=== PATIENT | female | born 1950 | race Caucasian/White ===

== ENCOUNTER → 2016-12-07 | Outpatient (CLI) | payer MEDICARE ==
[~2016-12-07] MED LIST: ASMANEX220 MC1 INH; AUGMENTIN 875-875 MG PO; DOXYCYCLINE100 M3 PO; DOXYCYCLINE100 MG PO; DUONEB 3 MG/3 ML3 M1 INH; LISINOPRIL2.5 MG PO; MEDROL DOSEPAK4 MG PO; MUCINEX ER600 MG PO; NAPROSYN250 MG PO; NEXIUM40 MG PO; PREDNISONE5 MG PO; PROAIR HFA8.5 GM INH; PULMICORT RESP0.5 M1 INH; SYMBICORT1 AE1 INH; Tobradex 0.3-0.15 ML OT; ZAFIRLUKAST20 M2 PO
== END | disposition home or self-care (01) ==
LOC: RAD 09:52
DX: R91.8 Other nonspecific abnormal finding of lung field (principal); J45.909 Unspecified asthma, uncomplicated

== ENCOUNTER 2017-04-12 10:35 | Inpatient (IN) | payer MEDICARE ==
[~2017-04-12] VITALS: Ht 152.4 cm; Wt 77.1 kg
--- NOTE | ~2017-04-12 | PR ---
[place], [place] PROGRESS NOTE NAME: YUE GONZALEZ UNIT #: [id number] ROOM: 516 DOCTOR: BARON ENGLAND MD BIRTHDATE: [birth year] DOS: SUBJECTIVE: The patient underwent a bronchoscopy yesterday. She does not have any complaints today. OBJECTIVE: VITAL SIGNS: Blood pressure is 131/73, pulse of 80, respirations 20, temperature 98. LUNGS: Diminished breath sounds, clear. Cough is persistent. HEART: Regular. ABDOMEN: Obese, soft, nontender. EXTREMITIES: Without any edema. ASSESSMENT AND PLAN: 1. Acute exacerbation of bronchial asthma, on steroids. 2. Acute tracheobronchitis, status post bronchoscopy. Bronch culture is pending. Plan is to discharge her to home tomorrow once the bronch culture is negative. 3. Immunoglobulin levels are on the low side. Discussed with Dr. Fuentes. We will repeat as an outpatient to see whether there is any change. So far the gram stain is coming back negative. Cultures are not available yet. 4. Hypertension. Echocardiogram showed left ventricular hypertrophy. Lisinopril was discontinued because of the continued cough. The patient was placed on low dose of Cardizem. BARON ENGLAND MD CM:PNTRANS 2 6 BARON ENGLAND MD 04/15/1715 interface
--- NOTE | ~2017-04-12 | EKG ---
[place], [place] ELECTROCARDIOGRAM REPORT NAME: YUE GONZALEZ UNIT #: [id number] ROOM: 516 DOCTOR: JEREL TORRES MD,NANCY BIRTHDATE: [birth year] DOS: 04/12/2017 Electrocardiogram done at 9:29 a.m. Normal sinus rhythm noted with heart rate 87 beats per minute. There were no other acute abnormalities noted on the electrocardiogram. NANCY BELTRÁN MD CM:EKGRPT:ELECTROCARDIOGRAM REPORT [id number] NANCY TORRES MD
--- NOTE | ~2017-04-12 | PROC NOTE ---
[place], [place] PROCEDURE NOTE NAME: YUE GONZALEZ UNIT #: [id number] ROOM: 516 DOCTOR: JEREL TORRES MD,NANCY BIRTHDATE: [birth year] DOS: 04/14/2017 PREOPERATIVE DIAGNOSES: Severe nonproductive cough with expiratory wheezing and suspected mucus impaction of major airways with nonproductive cough. POSTOPERATIVE DIAGNOSES: Removal of multiple plugs of the mucus in endobronchial tree bilaterally in almost all of the subsegments. There were no endobronchial obstructive lesions. PROCEDURE DESCRIPTION: Informed consent obtained. She was brought to the OR and placed in supine position. Conscious sedation was administered by the Anesthesia Department. After achieving appropriate sedation, airway introduced into the mouth. Bronchoscope advanced into the airway into laryngeal area. Epiglottis and vocal cords were seen. Bronchoscope was advanced through the vocal cords into the tracheal lumen. The tracheal lumen was identified and noted with moderate amount of thick mucus secretions present in the tracheal lumen suctioned out. Ruth noted sharp. Right upper, right middle, right lower, left upper, lingular lower lobe bronchi all examined and noted very thick plugs of the mucus causing partial impaction of the endobronchial tree bilaterally. All secretions were suctioned out with normal saline wash and sent for culture. Procedure was tolerated without any difficulty. Postoperative findings will be discussed with the patient once the patient recovers the effects of acute sedation. Bronchial washings sent for all the necessary testing. No change in treatment at this time will be necessary because of that. NANCY BELTRÁN MD CM:PROCNOTE:PROCEDURE NOTE [id number] NANCY TORRES MD
--- NOTE | ~2017-04-12 | DS ---
[place], [place] DISCHARGE SUMMARY NAME: YUE GONZALEZ UNIT #: [id number] ROOM: 516 DOCTOR: BARON ENGLAND MD BIRTHDATE: [birth year] DOS: 04/17/2017 HOSPITAL COURSE: The patient was admitted to the hospital on April 12. She comes in with complaints of shortness of breath and cough, had finished outpatient antibiotics and steroids without any improvement. She was admitted to the fifth floor, non-monitored. She was placed on antibiotics and steroids. Dr. Fuentes was consulted. CT of the chest was done to rule out pneumonia. This has come back negative. Routine labs were within normal limits. Immunoglobulin levels were abnormal, and this will need to be repeated as an outpatient. IV steroids, antibiotics were continued. The patient continued to have a cough, so was taken for bronchoscopy. Bronch cultures have come back negative. Blood pressures have been controlled with Cardizem. Lisinopril was discontinued because of the possibility of it causing cough. The patient has continued to improve, but continues to have this very moist sounding cough. Sputum cultures and the bronch cultures all negative, so the plan is to discharge her to home today with continued antibiotics and steroids and follow up as an outpatient and the patient may benefit from allergy testing as an outpatient. DISCHARGE DIAGNOSES: 1. Moderate persistent asthma with exacerbation. 2. Acute tracheobronchitis, status post bronchoscopy with negative cultures. 3. Benign hypertension. 4. Gastroesophageal reflux disease. DISCHARGE MEDICATIONS: Tapering dose of prednisone, Cipro 500 mg twice a day, diltiazem 120 daily, Nexium 40 daily, ProAir 2 puffs twice a day, breathing treatments DuoNebs q.4 hours, zafirlukast 20 b.i.d., guaifenesin 600 b.i.d., Asmanex 2 puffs at bedtime. BARON ENGLAND MD CM:DISCHARG [id number] BARON ENGLAND MD 04/17/17 1654 interface
--- NOTE | ~2017-04-12 | CON ---
[place], [place] REPORT OF CONSULTATION NAME: YUE GONZALEZ UNIT #: [id number] ROOM: 516 DOCTOR: NANCY DIEZ MD BIRTHDATE: [birth year] DOS: 04/13/2017 HISTORY OF PRESENT ILLNESS: This is a 67-year-old white female admitted under care of Dr. Clair Jeronimo on 04/12/2017. The patient reported having symptoms of progressive severe barky kind of cough for the patient, which has been present for the past several weeks to months. The symptoms had not been resolving. She has been treated with corticosteroids, bronchodilators, antibiotics without relief of the symptoms. She denies symptoms of chest pain. Denies symptoms of postnasal drainage. Cough has been noted to significant at times, episodic, nonproductive. She was also noted with symptoms of shortness breath and wheezing along with the current symptom. REVIEW OF SYSTEMS: CONSTITUTIONAL: Fatigue and tiredness noted without symptoms of fever or chills. EYES: Denies any burning, redness, or tenderness. EARS, NOSE, THROAT SYMPTOMS: No sore throat, hoarseness, otalgia, postnasal drainage. CARDIOVASCULAR: Denies anginal pain, edema or pain of the lower extremities. GASTROINTESTINAL: Denies dysphagia, nausea, vomiting, diarrhea, abdominal pain, hematemesis, melena, or hematochezia. SKIN: Denied any lesions or rashes. CENTRAL NERVOUS SYSTEM: No dizziness, headache, diplopia, syncopal episodes. Remaining systems were reviewed with the patient, they were noted all negative. PAST MEDICAL HISTORY: 1. Known with history of uncomplicated severe persistent bronchial asthma. 2. Gastroesophageal reflux. 3. Moderate obesity. PAST SURGICAL HISTORY: 1. Cholecystectomy. 2. Appendectomy. 3. Hysterectomy. 4. ____ 5. 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 6. Therapeutic bronchoscopy. Last bronchoscopy done for this patient in October 2016. SOCIAL HISTORY: The patient is , has 2 children. Denies history of alcohol use or illicit drug use. Denies any history of occupation related pulmonary exposure. FAMILY HISTORY: The patient's father at 65 years of complication of myocardial infarction. Mother lived to be 104 years old and of natural causes. MEDICATIONS: The current administered medication of the patient were noted as use of Cardizem-CD, Protonix, Mucinex, Accolade, Flonase, Solu-Medrol 20 mg IV [place], [place] REPORT OF CONSULTATION NAME: YUE GONZALEZ UNIT #: [id number] ROOM: 516 DOCTOR: NANCY DIEZ MD BIRTHDATE: [birth year] b.i.d., DuoNeb, Zosyn, Zithromax and the patient was previously taking lisinopril, which has been discontinued. ALLERGIES: THE DRUG ALLERGY HISTORY WAS NOTED ALLERGY TO SINGULAIR. PHYSICAL EXAMINATION: GENERAL: A 67-year-old white female, who has been currently noted awake and alert at this time without any acute distress. The patient's height was recorded by the nursing staff on admission with height of 5 feet, weight of 170 pounds, BMI 33.2. VITAL SIGNS: For the patient which has been recorded shows normal temperature, respiratory rate 18-20, heart rate 77-93, blood pressure 160/75-148/89. Pulse oxygen saturation of the patient on room air was 94% saturation. HEENT: Moderate obesity. Head was atraumatic. Eyes nonicterus. NECK: Supple. CARDIOVASCULAR: S1, S2 audible. LUNGS: The patient was noted with moderate decreased breath sounds with expiratory wheezing. There were no crackles. ABDOMEN: Soft with moderate obesity, bowel sounds present. EXTREMITIES: Show no edema, clubbing, cyanosis. CENTRAL NERVOUS SYSTEM: Cranial nerves 2-12 intact. No focal deficit. MUSCULOSKELETAL: No obvious deformities. SKIN: No lesions or rashes. LABORATORY DATA: The patient's CMP for this patient that was done on 04/12/2017 shows glucose 121. BUN and creatinine were normal, remaining CMP normal. CBC of 04/12/2017 for the patient was noted essentially as normal. CT scan of the chest was done yesterday as ordered by Dr. Clair Jeronimo, as well was noted without any acute abnormalities. IMPRESSION: 1. The patient with progressive coughing with acute exacerbation of bronchial asthma, failed to respond to the outpatient treatment with different interventions. 2. History of possibility of allergic rhinitis. 3. Moderate obesity. PLAN OF TREATMENT: Further assessment of cough. The patient has not responded to treatment. She will be benefiting from the therapeutic bronchoscopy planned to be done tomorrow morning. Risks and benefits were discussed. Continue current dose of steroids, bronchodilators, antibiotics. The spectrum of antibiotics should be deescalated soon as the culture results will be available from the sputum or the bronchial washings. Continuation of the bronchodilators and the treatment plan of management. Keep the patient off the lisinopril. The patient should not restarted as antihypertensive medication because of the cough. Alternative medication should be used for the medical management of the hypertension. Assessment and management has been discussed with primary care attending of this patient, Dr. Clair Jeronimo. [place], [place] REPORT OF CONSULTATION NAME: YUE GONZALEZ UNIT #: [id number] ROOM: 516 DOCTOR: NANCY DIEZ MD BIRTHDATE: [birth year] NANCY BELTRÁN MD CM:CONSTR:REPORT OF CONSULTATION 0940 04/13/17 1512 interface
--- NOTE | ~2017-04-12 | PR ---
[place], [place] PROGRESS NOTE NAME: YUE GONZALEZ UNIT #: [id number] ROOM: 516 DOCTOR: JEREL TORRES MD,NANCY BIRTHDATE: [birth year] DOS: 04/16/2017 ADDENDUM The patient was independently seen and examined today with [id number] encounter. Physical exam performed, symptom was confirmed. All the labs were reviewed. The note which was done by the medical delivery driver was approved. The patient has been showing progressive resolution and improvement in respiratory symptoms, reduction of the cough after the bronchoscopy. Denies symptoms of chest pain, ambulating at this time. PHYSICAL EXAMINATION: VITAL SIGNS: The patient was noted afebrile status, other vital signs noted stable. The pulse oxygen saturation of the patient was noted as 95%, auscultation of the chest was noted with questionable wheezing, no crackles. ABDOMEN: Soft, nontender. EXTREMITIES: Shows without any edema. LABORATORY DATA: Culture of the bronchial washing shows normal davian. CBC: WBC count 11.9, otherwise normal. BMP was normal. IMPRESSION: The patient with progressive resolution of the acute tracheobronchitis was noted with acute exacerbation of bronchial asthma after bronchoscopy with removal of the mucous plugs. Plan of management for this patient. Continuation of the antibiotics, corticosteroids, bronchodilators, and other treatment plan as previously. PLAN OF TREATMENT: Discharge the patient home whenever the patient noted medically stable from the pulmonary standpoint. NANCY BELTRÁN MD CM:JOHNATHON [phone] NANCY TORRES MD 04/16/17 1249 interface
--- NOTE | ~2017-04-12 | PR ---
[place], [place] PROGRESS NOTE NAME: YUE GONZALEZ UNIT #: [id number] ROOM: 516 DOCTOR: JEREL TORRES MD,NANCY BIRTHDATE: [birth year] DOS: 04/15/2017 ADDENDUM The patient was independently seen and examined with [id number] encounter. The assessment was completed. History was taken. All the labs were personally reviewed. The assessment and management done for this patient for today's visit was personally made. The note by the medical billing specialist was approved. LABORATORY DATA: The review of the lab for this patient shows Gram stain of the bronchial washing with few epithelial cells, moderate white blood cells, rare gram-positive cocci in pairs. On preliminary routine cultures, the patient noted normal davian. Final cultures are pending. IgE level was noted mildly elevated at 242. The IgA was mildly decreased and mild reduction in IgG was also noted. IMPRESSION: At this time, the patient responding to treatment with significant reduction in the cough was noted with physical examination. There was no wheezing noted. The culture preliminary was noted as no bacterial growth. Mild reduction in IgA and IgG needs to be rechecked for this patient. Once the patient does not have any signs of infection ____ assessment. PLAN OF TREATMENT: The patient could be discharged home as necessary. The patient on tapering dose of prednisone, antibiotics. The cultures will be monitored. The assessment, management and discharge planning was discussed with Dr. Clair Jeronimo as well. NANCY BELTRÁN MD CM:PNTRANS [id number] 1023 NANCY TORRES MD 04/15/17 1021 interface
--- NOTE | ~2017-04-12 | PR ---
[place], [place] PROGRESS NOTE NAME: YUE GONZALEZ UNIT #: [id number] ROOM: 516 DOCTOR: RACHELSARAH VICTORDAVE BIRTHDATE: [birth year] DOS: 04/16/2017 SUBJECTIVE: The patient is awake, alert, oriented, has no complaints. Denies any vomiting, chest pain, shortness of breath, fevers, chills or any other symptoms. She does report that she is still coughing somewhat, but that has significantly improved since yesterday. OBJECTIVE EXAMINATION: VITAL SIGNS: Temperature is 98.7, pulse rate 97, respiratory rate is 20, blood pressure is ____ and bedside pulse oximetry is 95% on room air. GENERAL: The patient is awake, alert, oriented, in no acute distress. CARDIOVASCULAR: Regular rate and rhythm. S1, S2 heard. PULMONARY: Some wheezes scattered throughout with decreased respiratory sounds. No crackles in lower lung kelsey. ABDOMEN: Soft, nontender, nondistended. EXTREMITIES: No erythema. No edema. NEUROLOGIC: Awake, alert, oriented to time, place and person. No gross neurologic abnormalities. Cranial nerves 2-12 are grossly intact. LABORATORY DATA: April 16, white blood count is 11.9, hemoglobin is 12.4, hematocrit is 37.5 and platelet count is 337. Chemistries: Sodium is 140, potassium 3.6, chloride is 106, carbon dioxide is 24, BUN is 17, creatinine is 0.69 and GFR is more than 60, glucose is 127, calcium is 8.4. IMPRESSION: Asthma exacerbation has improved and respiratory status has improved from yesterday. The cultures from the lungs have shown some epithelial cells, moderate white blood cells and rare gram-positive cocci in pairs. Please see Dr. Beltrán's attached note for more details on impression and plan, generally the patient is okay to be discharged at discretion of Dr. Jeronimo, the PCP and continue to follow up with Dr. Beltrán on an outpatient basis. Thank you for this consult. AMCHAPARRO DAVIDSHAUNADO [place], [place] PROGRESS NOTE NAME: YUE GONZALEZ UNIT #: [id number] ROOM: 516 DOCTOR: DAVE VELASCO DO BIRTHDATE: [birth year] NANCY BELTRÁN MD CM:JOHNATHON [phone] DAVE VELASCO DO 04/16/17 1850 interface
--- NOTE | ~2017-04-12 | WRIGHTHP ---
[place], [place] PATIENT HISTORY AND PHYSICAL EXAM NAME: YUE GONZALEZ UNIT #: [id number] ROOM: 516 DOCTOR: BARON ENGLAND MD BIRTHDATE: [birth year] DOS: 04/12/2017 HISTORY OF PRESENT ILLNESS: This patient is 67 years old, comes in with complaints of cough and shortness of breath. The patient was treated with antibiotics as an outpatient last week. She finished the antibiotic, but did not get any better, but continued to have very productive cough and increasing shortness of breath, both exertional as well as rest. She denies having any chest pains or palpitations, does not have any fever or chills, does not have any abdominal pain, nausea, any emesis. PAST MEDICAL HISTORY: Significant for: 1. Moderate persistent asthma. 2. Last hospitalization in August 2016 with acute tracheobronchitis and bronchoscopy performed at that time. 3. Benign hypertension. 4. Gastroesophageal reflux disease. MEDICATIONS: She is on right now are ProAir HFA q.i.d. p.r.n., breathing treatments q.4h., Asmanex 2 puffs at bedtime, Nexium 40 daily, lisinopril 2.5 daily, Accolate 20 b.i.d. and Mucinex 600 b.i.d. She has just finished taking amoxicillin and tapering dose of prednisone. SOCIAL HISTORY: Nonsmoker, does not use any alcohol. Lives at home. PHYSICAL EXAMINATION: GENERAL: The patient is awake and alert and oriented. VITAL SIGNS: Graphic trend shows a pressure 148/80, pulse of 72, respirations 20, afebrile, very moist harsh sounding cough. LUNGS: Rales throughout the lungs kelsey. HEART: Regular. ABDOMEN: Obese, soft, nontender. EXTREMITIES: Without any edema. ASSESSMENT AND PLAN: 1. Acute tracheobronchitis, rule out pneumonia. The patient is ordered a CT of the chest. The patient is placed on IV steroids and antibiotics. 2. Moderate asthma with exacerbation. IV steroids have been added. Dr. Fuentes has been consulted and possibly require a bronchoscopy. Immunoglobulin levels will be ordered and the patient may benefit from allergy testing as an outpatient. 3. Benign hypertension, on lisinopril, which also could cause some of her cough, I will discontinue the medicine and restart low dose antihypertensives at a later date. [place], [place] PATIENT HISTORY AND PHYSICAL EXAM NAME: YUE GONZALEZ UNIT #: [id number] ROOM: [facility] DOCTOR: BARON ENGLAND MD BIRTHDATE: [birth year] BARON ENGLAND MD CM:HISPHYS:PATIENT HISTORY AND PHYSICAL EXAMINATION 0825 1010 BARON ENGLAND MD 04/13/17 1338 interface
--- NOTE | ~2017-04-12 | PR ---
[place], [place] PROGRESS NOTE NAME[id number] UNIT #: [id number] ROOM: 516 DOCTOR: JEREL TORRES MD,NANCY BIRTHDATE: [birth year] DOS: 04/14/2017 SUBJECTIVE: She has been noted the same without any changes where she was noted with severe cough, which has not been resolving at all with current medical management. She was continued on bronchodilators, oxygen supplementation and other plan of therapy. She denies any symptoms of chest pain or hemoptysis. She has been n.p.o. past midnight for bronchoscopy that was planned to be done today in this patient. OBJECTIVE: VITAL SIGNS: For the patient which were recorded showed the temperature recorded as normal. The respiratory rate recorded as 20, heart rate of 92, blood pressure 120/55. Pulse oxygen saturation on room air was 94% saturation. HEENT: Examination shows no acute change. NECK: Supple. CARDIOVASCULAR: S1, S2 audible. LUNGS: The patient was noted without any crackles. Moderate expiratory wheezing was noted with decreased breath sounds bilaterally. ABDOMEN: Soft, nontender. IMPRESSION: The patient with persistent severe cough related to acute exacerbation of bronchial asthma with suspected mucus impaction of major airways as well as history of chronic [id number] obesity. PLAN OF TREATMENT: Continuation of the current therapy for the patient at this time. Proceed with bronchoscopy. Any modification of treatment if necessary after the bronchoscopy would be made accordingly. In the meantime, continue supportive therapy, plan of management care and treatments. NANCY BELTRÁN MD CM:PNTRANS 1016 1102 NANCY TORRES MD 04/14/17 1100 interface
--- NOTE | ~2017-04-12 | PR ---
[place], [place] PROGRESS NOTE NAME: YUE GONZALEZ UNIT #: [id number] ROOM: 516 DOCTOR: BARON ENGLAND MD BIRTHDATE: [birth year] DOS: SUBJECTIVE: The patient is not having any complaints this morning other than her continued cough. Cough is quite wet. She does not have any complaints of shortness of breath. PHYSICAL EXAMINATION: VITAL SIGNS: Blood pressure is 137/96, pulse of 90, respirations 20, temperature 98.7. LUNGS: Diminished breath sounds. No wheezes, rales or rhonchi heard. HEART: Regular. ABDOMEN: Obese, soft. EXTREMITIES: Without any edema. LABORATORY DATA: Bronch cultures have come back showing normal davian. Another set is still pending. White cell count is slightly elevated, possibly steroid effect. Electrolytes were normal. ASSESSMENT AND PLAN: 1. Acute tracheobronchitis with continued cough. So far, cultures have come back negative. 2. Moderate intermittent asthma with mild exacerbation, improving. 3. Benign hypertension. Pressures not very well controlled, increase dose of the Cardizem. BARON ENGLAND MD CM:PNTRANS 0844 112 BARON ENGLAND MD 04/16/17 1121 interface
--- NOTE | ~2017-04-12 | PR ---
[place], [place] PROGRESS NOTE NAME: YUE GONZALEZ UNIT #: [id number] ROOM: 516 DOCTOR: BARON ENGLAND MD BIRTHDATE: [birth year] DOS: SUBJECTIVE: The patient is doing well without any complaints this morning. She still has a cough, but is no longer short of breath. OBJECTIVE: VITAL SIGNS: Graphic trend shows a pressure of 127/63, pulse of 70, respirations 16, temperature 98.0. LUNGS: Diminished breath sounds. HEART: Regular. ABDOMEN: Obese, soft, nontender. EXTREMITIES: Without any edema. LABORATORY DATA: Sputum culture, final is normal davian. ASSESSMENT AND PLAN: 1. Moderate persistent asthma with exacerbation, improved. 2. Acute tracheobronchitis, status post bronchoscopy with negative cultures with continued cough, placed her on steroids and antibiotics and discharge her to home today. Follow up as an outpatient. 3. Hypertension, controlled. BARON ENGLAND MD CM:PNTRANS [id number] 1019 BARON ENGLAND MD 04/17/17 1017 interface
--- NOTE | ~2017-04-12 | PR ---
[place], [place] PROGRESS NOTE NAME: YUE GONZALEZ UNIT #: [id number] ROOM: 516 DOCTOR: DAVE VELASCO DO BIRTHDATE: [birth year] DOS: 04/15/2017 SUBJECTIVE: The patient had a bronchoscopy done yesterday. She states she is feeling significantly better today, but she continues to have some coughing spells, which are not as severe as it had been. She denies any chest pain, any fevers or ____. OBJECTIVE: VITAL SIGNS: Temperature is 97.7, pulse is 80, respiratory rate is 20, blood pressure is 156/81, and pulse ox is 95% on room air. Bronchial cultures and Gram stains are still pending. HEENT: No new changes. NECK: Supple and no masses. CARDIOVASCULAR: S1, S2 are audible. No murmurs. LUNGS: Some minimal wheezing can be heard bilaterally, but no significant crackles could be heard at this time. Breath sounds are somewhat decreased bilaterally. ABDOMEN: Soft, nontender. EXTREMITIES: Show no edema or erythema. IMPRESSION: The patient's cough is significantly improved after the bronchoscopy. Her exacerbation of bronchial asthma with the mucus plugging improved majorly. Actually, ____ go with the treatment. The patient can be discharged at this time at the discretion of Dr. Jeronimo, but from a pulmonary perspective, she is significantly improved. Please see Dr. Beltrán's attached note for more details. DAVE VELASCO, DO NANCY BELTRÁN MD CM:PNABRAHAM [id number] DAVE VELASCO DO 04/16/17 0847 interface
[2017-04-12 10:45] VITALS: BP 160/75
--- NOTE | 2017-04-12 10:45 | NUR ---
A 67, admitted to 5E, under the services of BARON Eduardo MD with a diagnosis of PNEUMONIA. Chief complaint is SOB WITH WHEEZING AND HARSH NONPRODUCTIVE COUGH. Patient arrived via WHEELCHAIR [place]. Monitor applied. Initial assessment completed. Vital signs taken and recorded. BARON EDUARDO MD notified of admission to the unit. Orders received. See assessment for past medical history, medications and allergies. Patient and/or family oriented to unit. [address] visitation policy reviewed. Clothing/patient valuable form completed. KELSIE MARTINEZ
[2017-04-12] MEDS ORDERED: ASMANEX HFA13 G1 INH (11:11)
[2017-04-12] MEDS ORDERED: AMOXICILLIN500 M2 PO (11:12)
[2017-04-12] MEDS ORDERED: PREDNISONE20 M1 PO (11:13)
--- NOTE | 2017-04-12 11:14 | NUR ---
MEDS VERIFIED WITH [facility]
[2017-04-12 12:00] VITALS: BP 160/75
--- NOTE | 2017-04-12 12:00 | NUR ---
IV started left forearm with #22 angiocath after 1 attempts. The IV site was prepped with Chloraprep. Heparin lock attached Sterile dressing applied. Patient tolerated precedure well. Procedure performed according to [facility] policy & procedure. KELSIE MARTINEZ
--- NOTE | 2017-04-12 12:32 | NUR ---
CALLED CONSULT TO DR BELTRÁN
[2017-04-12 14:07] LABS: BASO % 0.4 % (0.0-1.0); EOS % 0.1 % (1.0-4.0); HEMOGLOBIN 13.2 g/dl (12.0-16.0); LYMPH # 1.2 10*3/uL (1.3-4.4); LYMPH % 14.7 % (27.0-41.0); MEAN CELL VOLUME 87.3 fl (81.0-99.0); MEAN CORPUSCULAR HGB 28.8 pg (27.0-31.0); MEAN PLATELET VOLUME 9.1 fl (9.6-12.3); MONO # 0.2 10*3/uL (0.1-1.0); MONO % 2.2 % (3.0-9.0); NEUT # 6.6 10*3/uL (2.3-7.9); NEUT % 81.9 % (47.0-73.0); PLATELET COUNT AUTOMATED 324 10*3/uL (130-400); RED BLOOD COUNT 4.58 10*6/uL (4.10-5.10); RED CELL DISTRI WIDTH 13.1 % (0-14.5)
[2017-04-12 14:25] LABS: ALBUMIN 3.7 gm/dl (3.1-4.5); ALKALINE PHOSPHATASE 85 U/L (45-117); BUN 9 mg/dl (7-24); CHLORIDE 107 mmol/L (98-107); CREATININE 0.58 mg/dL (0.55-1.02); POTASSIUM 3.8 mmol/L (3.5-5.1); SGOT/AST 20 IU/L (3-35); SGPT/ALT 35 U/L (12-78); SODIUM 143 mmol/L (136-145); TOTAL PROTEIN 7.1 gm/dL (6.4-8.2)
[2017-04-12 16:00] VITALS: BP 129/68
--- NOTE | 2017-04-12 19:30 | NUR ---
ASSUMED CARE OF PT AT THIS TIME, RESPS EASY AND NONLABORED CALL LIGHT WITH IN REACH
[2017-04-12 20:00] VITALS: BP 110/60
--- NOTE | 2017-04-12 23:12 | NUR ---
RESTING IN BED WITH EYES CLOSED RESPS EASY AND NONLABORED WITH NO S/S OF DISTRESS CALL LIGHT WITH IN REACH
[2017-04-13] VITALS: BP 148/89
[2017-04-13 06:13] LABS: TOTAL PROTEIN, SERUM 6.2 g/dL (6.0-8.5)
--- NOTE | 2017-04-13 06:47 | NUR ---
INSTRUCTED PT WHEN HAVING PRODUCTIVE COUGH TO SPIT IN BOTTLE FOR SPUTUM SAMPLE, UNDERSTANDING VOICED
[2017-04-13 08:00] VITALS: BP 131/76
--- NOTE | 2017-04-13 08:30 | NUR ---
[employer] in to talk to patient. Patient states lives at HOME ALONE with HAS LARGE FAMILY THAT SEES HER FREQ. There are 30-40 steps in the home. Physician: DR ENGLAND Pharmacy: [facility] Home health services: NONE Patient's level of ADLs: INDEPENDENT Patient has working utilities: YES DME: [facility] Follow-up physician's appointment after d/c: PREFERS TO MAKE HER OWN APPT Does patient want to access PORTAL?: Discharge plan HOME. MILTON ROSENBERG
[2017-04-13 12:00] VITALS: BP 130/64
[2017-04-13 16:00] VITALS: BP 112/60
[2017-04-13 17:05] LABS: A/G RATIO 1.2 (0.7-1.7); ALBUMIN 3.4 g/dL (2.9-4.4); ALPHA-1-GLOBULIN 0.3 g/dL (0.0-0.4); ALPHA-2-GLOBULIN 0.8 g/dL (0.4-1.0); GAMMA GLOBULIN 0.7 g/dL (0.4-1.8); GLOBULIN, TOTAL 2.8 g/dL (2.2-3.9); M-SPIKE Not Observed g/dL (Not Observed)
--- NOTE | 2017-04-13 19:43 | NUR ---
PATIENT AWAKE IN BED AT THIS TIME, ALERT AND ORIENTED X3. PATIENT C/O NON-PRODUCTIVE HACKING COUGH. PATIENT ENCOURAGED TO COUGH & DEEP BREATHE. EDUCATED ABOUT NEEDING SPUTUM SPECIMIN, BUT PATIENT STATES SHE CANNOT BRING ANYTHING UP. DISCUSSED PLANS FOR BRONCH IN AM WITH AND NPO STATUS AFTER MIDNIGHT. PATIENT VERBALIZED UNDERSTANDING. WILL CONTINUE TO MONITOR. CALL LIGHT LEFT IN REACH.
[2017-04-13 20:00] VITALS: BP 131/69
--- NOTE | 2017-04-13 20:24 | NUR ---
SPOKE TO AT THIS TIME REGARDING PATIENT'S REQUEST FOR PAIN MEDICATION FOR HEADACHE/GENERALIZED NECK/BODY PAIN FROM COUGHING. PT ALSO REQUESTING SOMETHING TO HELP HER SLEEP. NEW ORDERS RECEIVED FOR PO TYLENOL 650MG Q6H PRN AND AMBIEN 5MG QHS PRN.
--- NOTE | 2017-04-13 21:42 | NUR ---
PATIENT MEDICATED WITH PO TYLENOL AND PO AMBIEN PER PRN ORDER FOR C/O GENERALIZED BODY PAIN/HEADACHE FROM COUGHING AND SLEEPLESSNESS. WILL MONITOR EFFECTIVENESS. CALL LIGHT LEFT IN REACH.
--- NOTE | 2017-04-13 22:26 | NUR ---
PATIENT STATES EARLIER MEDICATIONS WERE EFFECTIVE. PATIENT IS STILL AWAKE BECAUSE OF HER COUGHING SPELLS, BUT STATES SHE IS STARTING TO FEEL TIRED. REMINDED PATIENT SHE IS TO HAVE NOTHING TO EAT/DRINK AFTER MIDNIGHT FOR BRONCH IN AM. WILL MONITOR. CALL LIGHT LEFT IN REACH.
[2017-04-14] VITALS (7 sets, daily range): BP systolic 103–152; BP diastolic 46–77
--- NOTE | 2017-04-14 00:16 | NUR ---
PATIENT ASLEEP IN BED AT THIS TIME. RESPIRATIONS EASY, NO S/S OF DISTRESS NOTED. ON ROOM AIR. CALL LIGHT LEFT INR EACH.
--- NOTE | 2017-04-14 03:53 | NUR ---
PATIENT ASLEEP IN BED AT THIS TIME. RESPIRATIONS EASY. NO S/S OF DISTRESS NOTED. WILL MONITOR. CALL LIGHT IN REACH.
[2017-04-14 07:05] LABS: IMMUNOGLOBULIN IgE 002170 242 IU/mL (0-100)
--- NOTE | 2017-04-14 07:51 | NUR ---
PT TAKEN OFF FLOOR TO BRONCH AT THIS TIME.
[2017-04-15] VITALS: BP 131/73
[2017-04-15 00:03] LABS: IGG SUBCLASS 1 326 mg/dL (248-810); IGG SUBCLASS 2 230 mg/dL (130-555); IGG SUBCLASS 3 62 mg/dL (15-102); IGG SUBCLASS 4 75 mg/dL (2-96)
--- NOTE | 2017-04-15 01:01 | NUR ---
24 HR chart check completed.
[2017-04-15 08:00] VITALS: BP 156/81
[2017-04-15 12:00] VITALS: BP 127/58
--- NOTE | 2017-04-15 13:38 | NUR ---
Patient awake, alert, & ambulatory. Up walking in hallway. harsh cough still present on assessment. Productive at times. Lungs diminished w/ some rhonchi on the right side. No needs voiced at this time.. Call light in reach.
[2017-04-15 16:00] VITALS: BP 135/73
[2017-04-15 16:09] LABS: ACID FAST SMEAR Negative (.); ACID FAST SPEC PROCESSING Concentration (.)
[2017-04-15 20:00] VITALS: BP 143/58
--- NOTE | 2017-04-15 21:15 | NUR ---
Medicated with Ambien po prn for help with sleep. Will monitor effectiveness. Call light within reach.
--- NOTE | 2017-04-15 22:20 | NUR ---
Patient resting quietly in bed with eyes closed. Paul effective. Will continue to monitor. Call light within reach.
[2017-04-16] VITALS: BP 141/77
--- NOTE | 2017-04-16 00:24 | NUR ---
24 HR chart check completed.
[2017-04-16 06:34] LABS: BASO % 0.2 % (0.0-1.0); HEMATOCRIT 37.5 % (37.0-47.0); HEMOGLOBIN 12.4 g/dl (12.0-16.0); LYMPH # 1.2 10*3/uL (1.3-4.4); LYMPH % 10.3 % (27.0-41.0); MEAN CELL VOLUME 88.4 fl (81.0-99.0); MEAN CORPUSCULAR HGB 29.2 pg (27.0-31.0); MEAN CORPUSCULAR HGB CONC 33.1 g/dl (33.0-37.0); MEAN PLATELET VOLUME 9.1 fl (9.6-12.3); MONO # 0.5 10*3/uL (0.1-1.0); MONO % 3.8 % (3.0-9.0); NEUT # 10.1 10*3/uL (2.3-7.9); NEUT % 84.6 % (47.0-73.0); PLATELET COUNT AUTOMATED 336 10*3/uL (130-400); RED BLOOD COUNT 4.24 10*6/uL (4.10-5.10); RED CELL DISTRI WIDTH 13.2 % (0-14.5); WHITE BLOOD COUNT 11.9 10*3/uL (4.8-10.8)
[2017-04-16 07:00] LABS: BUN 17 mg/dl (7-24); CHLORIDE 106 mmol/L (98-107); CREATININE 0.69 mg/dL (0.55-1.02); POTASSIUM 3.6 mmol/L (3.5-5.1); SODIUM 140 mmol/L (136-145)
[2017-04-16 08:00] VITALS: BP 137/96
--- NOTE | 2017-04-16 11:16 | NUR ---
PATIENT IV CAUSING PAIN. REMOVED AND REPLACED VIA PT REQUEST.
[2017-04-16 12:00] VITALS: BP 153/67
--- NOTE | 2017-04-16 13:52 | NUR ---
dr. coleman called and notified of micro results. dr. coleman said she will more then likely dc the patient tomorrow morning. no other concerns at this time.
[2017-04-16 16:00] VITALS: BP 106/61
--- NOTE | 2017-04-16 19:37 | NUR ---
24 HR chart check completed.
[2017-04-16 20:00] VITALS: BP 137/69
--- NOTE | 2017-04-16 21:23 | NUR ---
C/O INSOMNIA. MEDICATED WITH PRN AMBIEN ORDERED AND PER PATIENT REQUEST.
--- NOTE | 2017-04-16 22:12 | NUR ---
PATIENT ASLEEP. GABINO ROSAS.
[2017-04-17] VITALS: BP 127/63
--- NOTE | 2017-04-17 04:39 | NUR ---
PT SLEEPING AT THIS TIME. NO S/S OF DISTRESS. RESPIRATIONS EASY AND UNLABORED. HR 80 PER CM AT THIS TIME. NOT AWAKENED PER [facility] [place]. ALL SAFETY MEASURES IN PLACE. CALL LIGHT IN REACH.
--- NOTE | 2017-04-17 06:57 | NUR ---
PT MORNING MEDICATION TAKEN WITH EASE. IV SITE PATENT, DRESSING DRY AND IN TACT. PT PLEASANT AND COOPERATIVE WITH NO COMPLAINTS AT THIS TIME. NO S/S OF DISTRESS. CALL LIGHT IN REACH.
[2017-04-17] MEDS ORDERED: DILTIAZEM 24HR120 MG PO (07:59)
[2017-04-17] MEDS ORDERED: CIPRO500 MG PO (07:59)
[2017-04-17] MEDS ORDERED: PREDNISONE5 MG PO (07:59)
[2017-04-17 08:00] VITALS: BP 136/83
--- NOTE | 2017-04-17 08:54 | NUR ---
PATIENT BEING DISCHARGED TO HOME. ALL PAPERS SIGNED. HEART MON REMOVED. IV REMOVED. ALL BELONGINGS TOGETHER. EDUCATION GIVEN FOR NEW PRESCRIPTIONS. NO QUESTIONS OR CONCERNS AT THIS TIME. PT WAITING FOR RIDE.
--- NOTE | 2017-04-17 08:56 | NUR ---
Discharge instructions reviewed with patient/family. Patient receptive and verbalizes understanding. Follow-up care arranged. Written instructions given to patient/family. SMITA HANNA
== END 2017-04-17 08:56 | disposition home or self-care (01) | DRG 202 ==
LOC: 5E 10:35
PROVIDERS: Internal Medicine Critical Care Medicine; ADMIT Internal Medicine
DX: J20.9 Acute bronchitis, unspecified (principal); J45.51 Severe persistent asthma with (acute) exacerbation; T17.890A Other foreign object in other parts of respiratory tract causing asphyxiation, initial encounter; I11.9 Hypertensive heart disease without heart failure; E66.8 Other obesity; K21.9 Gastro-esophageal reflux disease without esophagitis; Z68.33 Body mass index [BMI] 33.0-33.9, adult; Z90.49 Acquired absence of other specified parts of digestive tract; Z90.710 Acquired absence of both cervix and uterus; X58.XXXA Exposure to other specified factors, initial encounter; Y93.89 Activity, other specified; Y92.89 Other specified places as the place of occurrence of the external cause; Y99.8 Other external cause status

== ENCOUNTER → 2017-05-09 | Outpatient (CLI) | payer MEDICARE ==
[~2017-05-09] MED LIST changes: +AMOXICILLIN500 M2 PO; +ASMANEX HFA13 G1 INH; +CIPRO500 MG PO; +DILTIAZEM 24HR120 MG PO; +PREDNISONE20 M1 PO
[2017-05-11 08:12] LABS: COMPLEMENT C4 001834 28 mg/dL (14-44)
[2017-05-11 16:10] LABS: RUBEOLA AB IGG 096560 >300.0 AU/mL (Immune >29.9)
== END | disposition home or self-care (01) ==
LOC: LAB 06:19
PROVIDERS: Specialist
DX: J32.9 Chronic sinusitis, unspecified (principal); B99.8 Other infectious disease

== ENCOUNTER → 2017-06-23 | Outpatient (CLI) | payer MEDICARE | END | disposition home or self-care (01) | LOC: LAB 08:36 | PROVIDERS: Specialist | DX: J32.9 Chronic sinusitis, unspecified (principal); M87.019 Idiopathic aseptic necrosis of unspecified shoulder; D83.8 Other common variable immunodeficiencies ==

== ENCOUNTER 2017-07-24 09:53 | Inpatient (IN) | payer MEDICARE ==
[~2017-07-24] VITALS: Ht 152.4 cm; Wt 80.3 kg
--- NOTE | ~2017-07-24 | PR ---
[place], [place] PROGRESS NOTE NAME: YUE GONZALEZ UNIT #: [id number] ROOM: 524 DOCTOR: JEREL TORRES MD,NANCY BIRTHDATE: [birth year] DOS: 07/26/2017 SUBJECTIVE: The patient has been noted without any ongoing acute or new specific complaints at this time. Coughing has been still noted with partial reduction. There were symptoms of wheezing, shortness of breath occurs with exertion. The patient was noted with a pain in the chest related to the current cough. OBJECTIVE: VITAL SIGNS: For the patient which were recorded show normal temperature, respiratory rate 18, heart rate 74, blood pressure 142/80. The pulse oxygen saturation noted on room air 94% saturation. HEENT: Showed no acute change. NECK: Supple. CARDIOVASCULAR: S1, S2 audible. LUNGS: The patient noted without any wheezing or crackles at present time. ABDOMEN: Soft, nontender. EXTREMITIES: Without any acute edema. IMPRESSION: Persistent severe cough with acute exacerbation of bronchial asthma. There has not been much wheezing noted today. The cough remains persistent. PLAN OF TREATMENT: Fiberoptic bronchoscopy in the morning to help clear mucus impaction of major airways. Other treatment at this time remains unchanged. Supportive care, other therapy, plan of management and treatments. NANCY BELTRÁN MD CM:PNTRANS [id number] NANCY TORRES MD 07/27/17 0029 interface
--- NOTE | ~2017-07-24 | PR ---
[place], [place] PROGRESS NOTE NAME: YUE GONZALEZ UNIT #: [id number] ROOM: 524 DOCTOR: JEREL TORRES MD,NANCY BIRTHDATE: [birth year] DOS: 07/25/2017 SUBJECTIVE: She has been noted severe episode of cough, which remained nonproductive. She was started on cough medication as well as other medical management changes were made yesterday. She was still getting intravenous Solu-Medrol the patient same dose. The patient has a mg Solu-Medrol t.i.d. OBJECTIVE: VITAL SIGNS: For the patient, which has been recorded for the patient shows a normal temperature, respirations 18, heart rate 76, blood pressure 128/99. The pulse oxygen saturation on 2 liters 94% saturation. HEENT: Mild obesity. NECK: Supple. CARDIOVASCULAR: S1, S2 is audible. LUNGS: Moderate decreased breath sounds, scattered wheezing, no crackles. ABDOMEN: Soft, nontender. EXTREMITIES: Without any acute edema. IMPRESSION: Acute tracheobronchitis with exacerbation of chronic obstructive pulmonary disease, severe nonproductive cough for this patient at the present time was also noted. PLAN OF TREATMENT: Continue Solu-Medrol, bronchodilator, current antibiotics for the patient as well. Empirical management of pertussis infection. The patient was present with the use of the oral Zithromax. Continuation of the bronchodilators, oxygen supplementation and other treatment plan as in progress. Usual care. Supportive therapy, plan of care. NANCY BELTRÁN MD CM:PNTRANS [phone] NANCY TORRES MD 07/25/17 185 interface
--- NOTE | ~2017-07-24 | PR ---
[place], [place] PROGRESS NOTE NAME: YUE GONZALEZ UNIT #: [id number] ROOM: 524 DOCTOR: BARON ENGLAND MD BIRTHDATE: [birth year] DOS: SUBJECTIVE: The patient continues to have the cough. Denies having any chest pains or palpitations. Currently getting echocardiogram. OBJECTIVE: VITAL SIGNS: Graphic shows blood pressure 120/52, pulse of 92, respirations 20, temperature 98.1. LUNGS: Diminished breath sounds, fairly clear this morning. HEART: Regular. ABDOMEN: Obese, soft. EXTREMITIES: Without any edema. ASSESSMENT AND PLAN: 1. Gzqkhwli-[id number] intermittent asthma with acute exacerbation, on IV steroids with some improvement in the bronchospasm. 2. Acute tracheobronchitis with continued harsh, unrelenting cough. The patient is on multiple cough medications. Discussed with nursing staff. Dr. Fuentes is following. The patient is on multiple antibiotics also. Cultures so far are negative. BARON ENGLAND MD CM:PNTRANS [id number] BARON ENGLAND MD 07/26/17 1328 interface
--- NOTE | ~2017-07-24 | CON ---
[place], [place] REPORT OF CONSULTATION NAME: YUE GONZALEZ UNIT #: [id number] ROOM: 524 DOCTOR: NANCY DIEZ MD BIRTHDATE: [birth year] DOS: 07/24/2017 PULMONARY CONSULTATION, EVALUATION AND MANAGEMENT CONSULTATION REQUESTED BY: Dr. Clair Jeronimo completed on 07/24/2017. REASON FOR CONSULTATION: To assess the patient for the pneumonia and current acute respiratory symptoms. HISTORY OF PRESENT ILLNESS: This is a 67-year-old white female known to me with past history of uncomplicated severe persistent bronchial asthma and severe allergic rhinitis. The patient has been seen by the service and repair supervisor from [place], [place]. She has been noted with allergies to multiple environmental allergens, still awaiting for the approval and authorization to administer the immunotherapy. She presented to the hospital Emergency as the patient has been noted progressive worsening of the respiratory symptoms of cough for the past couple of weeks. The symptoms have been noted gradually progressive and remains severe nonproductive and episodic. She was also noted with increased shortness of breath and also complaining of generalized weakness and fatigue. The wheezing with the patient described intermittently as well with the chest pain related to the current cough, lower portion of the chest. She denies symptoms of hemoptysis. She has been assessed in the Emergency Room and currently being hospitalized for that. During the assessment, she has noted excessive cough, which appeared to be somewhat croup nature sound for this patient on the coughing and noted nonproductive, could last for several minutes. REVIEW OF SYSTEMS: CONSTITUTIONAL SYMPTOMS: Fatigue and tiredness reported without any symptoms of fever or chills. EYES: Denies any burning, redness, or tenderness. EAR, NOSE, THROAT: Denies sore throat, hoarseness, otalgia, postnasal drainage or epistaxis. CARDIOVASCULAR: Denies angina pain, edema or pain of the lower extremities. GASTROINTESTINAL SYMPTOMS: No dysphagia, nausea, vomiting, diarrhea, abdominal pain, hematemesis, melena or hematochezia. SKIN: Denies lesions or rashes. MUSCULOSKELETAL: Denies any acute joint pain. CENTRAL NERVOUS SYSTEM: No dizziness, headache, diplopia or syncopal episode. Remaining systems were reviewed, they were noted all negative. PAST MEDICAL HISTORY: 1. Was known with previous hospitalization of the patient in this hospital in 04/2017, at that time, she was treated for acute exacerbation of bronchial asthma and acute bronchitis, also required therapeutic bronchoscopy at that time. 2. Past history of uncomplicated severe persistent bronchial asthma. 3. Allergic rhinitis. 4. Moderate obesity. 5. Gastroesophageal reflux. [place], [place] REPORT OF CONSULTATION NAME: YUE GONZALEZ UNIT #: [id number] ROOM: 524 DOCTOR: JEREL TORRES MD,NANCY BIRTHDATE: [birth year] PAST SURGICAL HISTORY: 1. History of cholecystectomy. 2. History of appendectomy. 3. Hysterectomy. 4. Therapeutic bronchoscopy. The last one done in April 2017. 5. 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 6. History of T and A. SOCIAL HISTORY: The patient is , nonsmoker lifetime. Lives at home. She has 2 children. Denies history of alcohol use or any illicit drug use. There was no occupational-related pulmonary exposure history reported. FAMILY HISTORY: The patient's father at the age of 65 due to complication of myocardial infarction. Mother at the age of 104 years old from an old age. CURRENT ADMINISTERED MEDICATION: The patient was noted as use of IV Solu-Medrol 40 mg q.8h., Mucinex 600 mg p.o. b.i.d., Pulmicort Respules 0.5 mg b.i.d., DuoNeb q.4h., IV Rocephin and Levaquin. DRUG ALLERGIES: NOTED ALLERGY TO THE SINGULAIR FOR CAUSING HIVES. PHYSICAL EXAMINATION: GENERAL: This is a 67-year-old female currently noted to be awake and alert without any acute distress at this time. Height was noted for the patient 5 feet, weight of 177 pounds, BMI 34. VITAL SIGNS: Normal temperature, respiratory rate 18, heart rate 101, blood pressure 136/71. Pulse oxygen saturation on 2 liters nasal cannula 94%, on room air it was 94% saturation. HEENT: Mild obesity. Head is atraumatic. Eyes nonicterus. NECK: Supple. Oral mucosa moist. CARDIOVASCULAR: S1, S2 is audible. LUNGS: Noted with moderate decreased breath sounds, scattered expiratory wheezing without any crackles. ABDOMEN: Soft, nontender. EXTREMITIES: The patient was noted without any acute edema, clubbing or cyanosis. CENTRAL NERVOUS SYSTEM: Cranial nerves 2-12 intact. MUSCULOSKELETAL: Without any deformities. SKIN: Visible skin. No lesions or rashes. LABORATORY DATA: Labs on this patient. CBC today: WBC count 11.6, hemoglobin and hematocrit normal. The lactic acid 2.6, that was mildly elevated today. Influenza A and B, nasal washing antigen negative. The BMP of the patient this morning, normal BUN and creatinine and potassium 3.3. Followup lactic acid 1.4. One view chest x-ray with questionable left lower lobe area of atelectasis of the patient and/or small infiltration cannot be excluded with just 1-view x-ray. IMPRESSION: [place], [place] REPORT OF CONSULTATION NAME: YUE GONZALEZ UNIT #: [id number] ROOM: 524 DOCTOR: NANCY DIEZ MD BIRTHDATE: [birth year] 1. The patient who has been currently admitted to the hospital noted with severe cough, which is noted nonproductive for this patient with acute exacerbation of bronchial asthma. 2. Possibility of atelectasis of left lower lobe for the patient has been considered. Less likely to be acute pneumonia. 3. Rule out the viral etiology of the patient's current cough as well which was leading to current exacerbation of bronchial asthma including for respiratory syncytial virus for this patient as well as a pertussis infection. 4. History of environmental allergies for the patient as well managed by the service and repair supervisor. PLAN OF MANAGEMENT: Order the respiratory viral panel for this patient, nasopharyngeal wash. IgM antibody of pertussis need to be ordered as well but they restricted not to be ordered for the patient per hospital policy at this time, prior authorization will be needed. Continue use of Solu-Medrol for the patient as well. Order PA lateral chest x-ray of the patient today to assess the presence of any pneumonia versus atelectasis. Other supportive therapy, plan of management as well. Symptom management of cough will be done for the patient with using the Robitussin AC because of severe symptomatic cough. Mucinex will be continued the same dose. All other supportive plan of therapy as well will be continued. Usual care. Supportive plan of management as well. Additional treatment changes will be made based on the progression of the illness. The Robitussin will be given for this patient, 5 mL q.6h., because of severe cough. Continuation of bronchodilators. Ordered the sputum for Gram stain and culture of the patient, able to expectorate any sputum as well. Discontinuation of the Levaquin and continue Zithromax orally 500 mg daily to treat if there is any evidence of pertussis. Usual care. Thanks for allowing me to participate in the care of this patient. NANCY BELTRÁN MD CM:CONSTR:REPORT OF CONSULTATION 1542 07/25/17 0258 interface
--- NOTE | ~2017-07-24 | PR ---
[place], [place] PROGRESS NOTE NAME: YUE GONZALEZ UNIT #: [id number] ROOM: 524 DOCTOR: JEREL TORRES MD,NANCY BIRTHDATE: [birth year] DOS: 07/28/2017 SUBJECTIVE: The patient is noted comfortable at this time, resting. Coughing has been noted decreased after bronchoscopy, not completely resolved. Denies symptoms of chest pain. Wheezing has been noted resolved. There were no symptoms of acute shortness of breath. OBJECTIVE: VITAL SIGNS: For the patient which has been recorded shows normal temperature, respiratory rate 18, heart rate of 79, blood pressure 134/69. Pulse oxygen saturation on room air 95% saturation. HEENT: No acute change. NECK: Supple. CARDIOVASCULAR: S1, S2 audible. LUNGS: Noted without any wheezing or crackles. ABDOMEN: Soft, nontender. EXTREMITIES: No edema. LABORATORY DATA: Culture of the bronchial washing was noted as light growth of yeast. IMPRESSION: Resolving acute exacerbation of bronchial asthma with current medical management. Bronchoscopy removal of significant amount of large mucus plugs. PLAN OF MANAGEMENT: Continue the current therapy at this time with the steroids, bronchodilators, oxygen supplementation. Possible discharge home tomorrow morning after review of the final culture results that will be needed for this patient because of the long-term symptoms, which have been present with the cough still noted. NANCY BELTRÁN MD CM:PNTRANS [phone] NANCY TORRES MD 07/29/17 0117 interface
--- NOTE | ~2017-07-24 | EKG ---
[place], [place] ELECTROCARDIOGRAM REPORT NAME: YUE GONZALEZ UNIT #: [id number] ROOM: 524 DOCTOR: JEREL TORRES MD,NANCY BIRTHDATE: [birth year] DOS: 07/26/2017 TIME: 09:32. The electrocardiogram of the patient shows normal sinus rhythm. Heart rate 97 beats per minute. Nonspecific ST-T changes was also noted. Early transition of the R waves were noted in V2. There was no findings of intraventricular conduction delay. NANCY BELTRÁN MD CM:EKGRPT:ELECTROCARDIOGRAM REPORT [id number] NANCY TORRES MD
--- NOTE | ~2017-07-24 | PROC NOTE ---
[place], [place] PROCEDURE NOTE NAME: YUE GONZALEZ UNIT #: [id number] ROOM: 524 DOCTOR: JEREL TORRES MD,NANCY BIRTHDATE: [birth year] DOS: 07/27/2017 BRONCHOSCOPY NOTE PREOPERATIVE DIAGNOSES: The patient with severe coughing, which has been noted episodic, nonresolving and nonproductive with maximum medical therapy. POSTOPERATIVE DIAGNOSES: The patient has evidence of very severe impaction of the mucus with mucus plug removed from the endobronchial tree bilaterally with finding of acute tracheobronchitis as well. PROCEDURE DESCRIPTION: Informed consent obtained for the patient. She was brought to the OR and placed in supine position. Conscious sedation administered by the Anesthesia Department. After achieving proper sedation, airway introduced into the mouth. Bronchoscope advanced to the airway into laryngeal area. Epiglottis and vocal cords seen. Bronchoscope advanced through the vocal cords into the tracheal lumen. The tracheal lumen of the patient was identified and noted with moderate amount of mucoid secretion that was suctioned out to the ruth level. Ruth was noted sharp. Right and left endobronchial tree for this patient was suspected with large plugs of mucus present impacting with partial occlusion of the endobronchial tree bilaterally. The mucous impaction was noted in almost all of the subsegments. The procedure was well tolerated by the patient without any difficulty. Postoperative diagnosis will be discussed with the patient once the patient recovers from the effects of acute sedation. NANCY BELTRÁN MD CM:PROCNOTE:PROCEDURE NOTE [id number] NANCY TORRES MD
--- NOTE | ~2017-07-24 | WRIGHTHP ---
[place], [place] PATIENT HISTORY AND PHYSICAL EXAM NAME: YUE GONZALEZ UNIT #: [id number] ROOM: 524 DOCTOR: BARON ENGLAND MD BIRTHDATE: [birth year] DOS: 07/24/2017 HISTORY OF PRESENT ILLNESS: The patient is 67 years old, very well known to us. The patient did call the office a week ago, was prescribed antibiotic for a cough. The patient states it did not get any better, so she decided to come into the Emergency Room. She denies having any chest pains, palpitations, does not have any fever or chills, does not have any abdominal pain, nausea, emesis. Cough is and unrelenting but it does not end with whoop. Mostly it is dry and she is unable to cough up any mucus. Occasionally she brings small amounts of sputum. PAST MEDICAL HISTORY: Significant for: 1. Moderate persistent asthma with multiple hospitalizations for exacerbation. 2. Acute tracheobronchitis. 3. Benign hypertension. 4. Gastroesophageal reflux disease. 5. IgM deficiency. MEDICATIONS: She is on Asmanex breathing treatments, amlodipine, , omeprazole and Accolate. SOCIAL HISTORY: Nonsmoker, does not use any alcohol. PHYSICAL EXAMINATION: GENERAL: The patient is awake and alert and oriented. VITAL SIGNS: Graphic trend shows a pressure of 115/69, pulse of 80, respirations 20, temperature 98.0. LUNGS: Diminished breath sounds, scattered rhonchi and wheezes heard bilaterally. HEART: Regular. ABDOMEN: Obese. EXTREMITIES: Without any edema. ASSESSMENT AND PLAN: 1. Moderate persistent asthma, on IV steroids and maximal bronchodilators. 2. Immunoglobulin deficiency. She has been seeing her sales associate fishing in [place] and is awaiting immunoglobulin injections. 3. Benign hypertension, controlled. Restart amlodipine, but we will go ahead and arrange for an echocardiogram, check LV function. 4. Acute tracheobronchitis. Dr. Fuentes has been consulted. IV antibiotics have been ordered. [place], [place] PATIENT HISTORY AND PHYSICAL EXAM NAME: YUE GONZALEZ UNIT #: [id number] ROOM: 524 DOCTOR: BARON ENGLAND MD BIRTHDATE: [birth year] ABRON ENGLAND MD CM:PHYS:PATIENT HISTORY AND PHYSICAL EXAMINATION 0747 1 BARON ENGLAND MD 07/25/17 0901 interface
--- NOTE | ~2017-07-24 | PR ---
[place], [place] PROGRESS NOTE NAME: YUE GONZALEZ UNIT #: [id number] ROOM: 524 DOCTOR: BARON ENGLAND MD BIRTHDATE: [birth year] DOS: 07/29/2017 SUBJECTIVE: The patient feels fairly good, does not have any complaints. PHYSICAL EXAMINATION: VITAL SIGNS: Graphic trend shows a pressure of 138/67, pulse of 70, respirations 18, temperature 97.8. LUNGS: Diminished breath sounds, few scattered rhonchi and wheezes heard. HEART: Regular. ABDOMEN: Obese, soft. EXTREMITIES: Without any edema. ASSESSMENT AND PLAN: 1. Moderate to severe intermittent asthma, which has become persistent now with acute exacerbation. 2. For mucus plugging, so far the cultures coming back negative. Final cultures are pending. She does have preliminary show slight yeast. We will continue medications today. Plan is to discharge her to home tomorrow. 3. Benign hypertension, controlled. Echocardiogram shows normal LV function and insurance has approved her for inpatient stay. BARON ENGLAND MD CM:PNTRANS [id number] BARON ENGLAND MD 07/30/17 0439 interface
--- NOTE | ~2017-07-24 | PR ---
[place], [place] PROGRESS NOTE NAME: [facility]Z [facility] [id number] UNIT #: [id number] ROOM: 524 DOCTOR: JEREL TORRES MD,NANCY BIRTHDATE: [birth year] DOS: 07/30/2017 SUBJECTIVE: The patient noted comfortable at this time without any acute distress, but noted comfortable otherwise. The patient has not been noted any ongoing acute new complaints at the present time. There were no symptoms of chest pain or any abdominal pain. She was planned for discharge home today. OBJECTIVE: VITAL SIGNS: Normal temperature, respiratory 20, heart rate 79, blood pressure 120/83 140/64, pulse oxygen saturation of the patient recorded as 94% on room air. HEENT: Showed no acute change. NECK: Supple. CARDIOVASCULAR: S1, S2 is audible. LUNGS: The patient was noted without any wheezing or crackles. ABDOMEN: Soft and nontender. IMPRESSION: Stable respiratory status was noted at the present time with current ongoing medical illnesses. PLAN OF TREATMENT: No changes in the plan of therapy. The patient at this time. Continue patient's current therapy, plan of care previously. Usual care. Supportive plan of management and care. Tapering dose of prednisone upon discharge. She was be seen in my office next week on Wednesday as well. NANCY BELTRÁN MD CM:PNTRANS [phone] NANCY TORRES MD 07/31/17 0117 interface
--- NOTE | ~2017-07-24 | PR ---
[place], [place] PROGRESS NOTE NAME: YUE GONZALEZ UNIT #: [id number] ROOM: 524 DOCTOR: JEREL TORRES MD,NANCY BIRTHDATE: [birth year] DOS: 07/29/2017 PULMONARY PROGRESS NOTE SUBJECTIVE: She has been noted continued resolution of the cough. Cough has been further decreased in the last 24 hours. Wheezing has resolved. Shortness of breath is improving. She has been ambulating. OBJECTIVE: VITAL SIGNS: This morning, normal temperature, respiratory rate 18, heart rate 70, blood pressure 138/67. Pulse oxygen saturation on room air 94% saturation. HEENT: Shows no acute change. NECK: Supple. CARDIOVASCULAR: S1, S2 audible. LUNGS: Without any wheeze or crackles at this time. ABDOMEN: Soft, nontender. EXTREMITIES: Without any acute edema. LABORATORY DATA: The culture and lab for this patient, bronchial washing noted as light growth of yeast. IMPRESSION: Progressive and gradual resolution of acute exacerbation of bronchial asthma and severe cough. PLAN OF THERAPY: No changes in the plan of management for the patient at this time. Continue with the patient's current therapy as previously. Usual care and other supportive plan of management and care. NANCY BELTRÁN MD CM:PNTRANS [phone] NANCY TORRES MD 07/29/17 2351 interface
--- NOTE | ~2017-07-24 | DS ---
[place], [place] DISCHARGE SUMMARY NAME: YUE GONZALEZ UNIT #: [id number] ROOM: 524 DOCTOR: BARON ENGLAND MD BIRTHDATE: [birth year] DOS: 07/30/2017 DIAGNOSES: 1. Severe persistent asthma with acute exacerbation. 2. Acute tracheobronchitis, status post bronchoscopy for tracheal lavage and mucous plugging. 3. Immunoglobulin deficiency. 4. Benign hypertension with normal LV function. HOSPITAL COURSE: The patient is 67 years old, comes in with complaints of cough and difficulty breathing. The patient had failed outpatient regimen for steroids and antibiotics and continues to have a cough. After admission, Dr. Fuentes was consulted, was placed on multiple antibiotics, dose of IV steroids for tachypnea and continued cough. Chest x-ray did not show any pathology. After admission, the patient's improvement has been extremely slow. Bronchoscopy was performed and tracheal lavage was performed. After the cultures were drawn, so far they have not grown any bacteria. AFB smear is also negative. Blood cultures also come back negative. Her cough and shortness of breath and tachypnea has subsided finally and her lungs do not have any evidence of bronchospasm, so the plan is to discharge her to home today on p.o. medications. DISCHARGE MEDICATIONS: Prednisone tapering dose, Augmentin 875 twice a day for 7 days, doxycycline 100 b.i.d. for 5 days, Nexium 40 daily, ProAir HFA p.r.n., breathing treatments q.4, Accolate 20 b.i.d., Asmanex 2 puffs at bedtime, azelastine spray to each nostril daily, amlodipine 2.5 daily. BARON ENGLAND MD CM:DISCHEMILIE [phone] 1 BARON ENGLAND MD 07/30/17 1005 interface
--- NOTE | ~2017-07-24 | PR ---
[place], [place] PROGRESS NOTE NAME: YUE GONZALEZ UNIT #: [id number] ROOM: 524 DOCTOR: BARON ENGLAND MD BIRTHDATE: [birth year] DOS: SUBJECTIVE: The patient is not having any new complaints other than the continued cough. OBJECTIVE: VITAL SIGNS: Graphic trend shows a pressure of 134/69, pulse of 80, respirations 18, temperature 97.9. LUNGS: Diminished breath sounds, scattered rhonchi. HEART: Regular. ABDOMEN: Obese. EXTREMITIES: Without any edema. ASSESSMENT AND PLAN: 1. Moderate to severe intermittent asthma with acute exacerbation, on IV steroids and maximal bronchodilators. 2. Acute tracheobronchitis with mucus plugging that Dr. Fuentes has taken out for a bronchoscopy. Bronch cultures so far have come back showing no bacterial growth. Awaiting the final culture. Once the final culture is available, if it is negative, the plan is to discharge her to home and insurance has denied her stay here and we will have to discuss with the registered medical transcriptionist of her insurance company this morning. BARON ENGLAND MD CM:PNTRANS [id number] BARON ENGLAND MD 07/28/17 0856 interface
--- NOTE | ~2017-07-24 | PR ---
[place], [place] PROGRESS NOTE NAME: YUE GONZALEZ UNIT #: [id number] ROOM: 524 DOCTOR: BARON ENGLAND MD BIRTHDATE: [birth year] DOS: SUBJECTIVE: The patient is not having any complaints. Denies any chest pains, palpitations. Her cough is much improved. OBJECTIVE: GENERAL: The patient is awake and alert and oriented. VITAL SIGNS: Graphic trend shows blood pressure of 159/67, pulse of 102, respirations 20, temperature 98.1. LUNGS: Clear. HEART: Regular. ABDOMEN: Soft. EXTREMITIES: Without any edema. ASSESSMENT AND PLAN: 1. Severe asthma, persistent with acute exacerbation, improved and stable. 2. Acute tracheobronchitis. Bronch cultures are negative. Plan is to discharge her to home today. BARON ENGLAND MD CM:PNTRANS [id number] BARON ENGLAND MD 07/30/17 0937 interface
--- NOTE | ~2017-07-24 | PR ---
[place], [place] PROGRESS NOTE [id number] UN[facility] #: [id number] ROOM: 524 DOCTOR: JEREL TORRES MD,NANCY BIRTHDATE: [birth year] DOS: 07/27/2017 SUBJECTIVE: The patient noted comfortable at this time without any acute distress, currently noted n.p.o. past midnight. Coughing remains very severe, nonproductive. The patient has not been noted with symptoms of chest pain or any abdominal pain. Shortness of breath of the patient was still noted intermittently. Denies symptoms of abdominal pain. Denies symptoms of headache. Denies any edema or pain of the lower extremities. Remaining systems were reviewed of the patient, they were noted all negative. OBJECTIVE: GENERAL: This is a 67-year-old white female, who has been currently noted awake and alert. Excessive cough is noted. On examination, she was in distress. VITAL SIGNS: Normal temperature, respiratory recorded 18-20, heart rate 84-83. Blood pressure 139/79-122/55. HEENT: Atraumatic. Eyes nonicterus. NECK: Supple. CARDIOVASCULAR: S1, S2 audible. LUNGS: Expiratory wheezing noted scattered in the lungs. There were no crackles. ABDOMEN: Soft with mild to moderate obesity. Bowel sounds present without any tenderness. EXTREMITIES: No edema, clubbing, or cyanosis. CENTRAL NERVOUS SYSTEM: Intact. MUSCULOSKELETAL: Without any acute deformities. SKIN: Visible skin, no lesions or rashes. CENTRAL NERVOUS SYSTEM: Intact. Cranial nerves 2-12 intact. LABORATORY DATA AND IMAGING STUDIES: BMP of the patient, glucose 125. Remaining BMP was normal. Culture of the sputum of 07/25/2017 noted normal davian. The echocardiogram was also done for this patient, completed on 07/26/2017, described by the laser beam trim operator of the patient as left ventricle ejection fraction 75% without any other abnormalities. IMPRESSION: The patient who has been currently noted with persistent severe acute respiratory symptoms of nonproductive cough, bronchial asthma, suspected mucous impaction in major airway of the patient. N.p.o. for bronchoscopy today. PLAN OF MANAGEMENT: No immediate change in the treatment at this time will be necessary. Any changes in the treatment if necessary or modification needed will be done after bronchoscopy. Supportive care. Other therapy, plan of management. Continue symptomatic management of cough as well. Usual care. All other plan of management of the patient as well. [place], [place] PROGRESS NOTE NAME: YUE GONZALEZ UNIT #: [id number] ROOM: 524 DOCTOR: NANCY DIEZ MD BIRTHDATE: [birth year] NANCY BELTRÁN MD CM:PNABRAHAM [phone] NANYC TORRES MD 07/27/177 interface
--- NOTE | ~2017-07-24 | EKG ---
[place], [place] ELECTROCARDIOGRAM REPORT NAME: YUE GONZALEZ UNIT #: [id number] ROOM: 524 DOCTOR: JEREL TORRES MD,NANCY BIRTHDATE: [birth year] DOS: 07/24/2017 Electrocardiogram done on 07/24/2017 at 10:22 a.m. Sinus tachycardia noted, heart rate of 101 beats per minute. NANCY BELTRÁN MD CM:EKGRPT:ELECTROCARDIOGRAM REPORT 1504 1522 NANCY TORRES MD
[2017-07-24 10:04] VITALS: BP 149/88
[2017-07-24] MEDS ORDERED: METHYLPRED-DP4 MG PO (10:10)
[2017-07-24] MEDS ORDERED: AUGMENTIN 875875 MG PO (10:10)
[2017-07-24] MEDS ORDERED: AZELASTINE137 MCG/0. NAS (10:11)
[2017-07-24] MEDS ORDERED: NORVASC2.5 MG PO (10:11)
[2017-07-24 10:44] LABS: BASO # 0.1 10*3/uL (0.0-0.1); BASO % 0.5 % (0.0-1.0); EOS # 0.3 10*3/uL (0.0-0.4); EOS % 2.2 % (1.0-4.0); HEMATOCRIT 40.1 % (37.0-47.0); HEMOGLOBIN 13.2 g/dl (12.0-16.0); LYMPH # 3.1 10*3/uL (1.3-4.4); MEAN CELL VOLUME 85.3 fl (81.0-99.0); MEAN CORPUSCULAR HGB 28.1 pg (27.0-31.0); MEAN CORPUSCULAR HGB CONC 32.9 g/dl (33.0-37.0); MEAN PLATELET VOLUME 8.9 fl (9.6-12.3); MONO % 8.6 % (3.0-9.0); NEUT # 7.1 10*3/uL (2.3-7.9); NEUT % 61.3 % (47.0-73.0); PLATELET COUNT AUTOMATED 322 10*3/uL (130-400); RED CELL DISTRI WIDTH 13.4 % (0-14.5); WHITE BLOOD COUNT 11.6 10*3/uL (4.8-10.8)
[2017-07-24 11:10] LABS: ALKALINE PHOSPHATASE 78 U/L (45-117); BUN 17 mg/dl (7-24); CHLORIDE 104 mmol/L (98-107); CREATININE 0.74 mg/dL (0.55-1.02); POTASSIUM 3.3 mmol/L (3.5-5.1); SGOT/AST 21 IU/L (3-35); SGPT/ALT 38 U/L (12-78); SODIUM 142 mmol/L (136-145); TOTAL PROTEIN 7.3 gm/dL (6.4-8.2)
[2017-07-24 11:12] LABS: TROPONIN I < 0.015 ng/ml (<0.045)
[2017-07-24 12:05] VITALS: BP 136/71
[2017-07-24 12:47] VITALS: BP 136/71
[2017-07-24 17:39] VITALS: BP 106/66
[2017-07-24 20:00] VITALS: BP 112/49
[2017-07-25] VITALS: BP 115/69
[2017-07-25 08:00] VITALS: BP 128/369; BP 128/69
[2017-07-25 12:00] VITALS: BP 124/64
[2017-07-25 16:37] VITALS: BP 124/58
[2017-07-25 20:44] VITALS: BP 140/77
[2017-07-26] VITALS: BP 120/52
[2017-07-26 08:00] VITALS: BP 144/84
[2017-07-26 12:00] VITALS: BP 142/80
[2017-07-26 16:00] VITALS: BP 140/80
[2017-07-26 20:00] VITALS: BP 133/71
[2017-07-27] VITALS (8 sets, daily range): BP systolic 123–170; BP diastolic 54–88
[2017-07-27 06:40] LABS: BUN 20 mg/dl (7-24); CHLORIDE 107 mmol/L (98-107); CREATININE 0.72 mg/dL (0.55-1.02); POTASSIUM 3.9 mmol/L (3.5-5.1); SODIUM 143 mmol/L (136-145)
[2017-07-27 06:52] LABS: BASO % 0.2 % (0.0-1.0); HEMATOCRIT 37.5 % (37.0-47.0); HEMOGLOBIN 12.2 g/dl (12.0-16.0); LYMPH # 1.6 10*3/uL (1.3-4.4); LYMPH % 14.6 % (27.0-41.0); MEAN CORPUSCULAR HGB 27.7 pg (27.0-31.0); MEAN CORPUSCULAR HGB CONC 32.5 g/dl (33.0-37.0); MEAN PLATELET VOLUME 9.2 fl (9.6-12.3); MONO # 0.5 10*3/uL (0.1-1.0); MONO % 4.7 % (3.0-9.0); NEUT # 8.5 10*3/uL (2.3-7.9); PLATELET COUNT AUTOMATED 345 10*3/uL (130-400); RED BLOOD COUNT 4.41 10*6/uL (4.10-5.10); RED CELL DISTRI WIDTH 13.4 % (0-14.5); WHITE BLOOD COUNT 10.7 10*3/uL (4.8-10.8)
[2017-07-28] VITALS: BP 115/59
[2017-07-28 08:00] VITALS: BP 134/69
[2017-07-28 12:00] VITALS: BP 136/78
[2017-07-28 15:05] LABS: ACID FAST SMEAR Negative (.); ACID FAST SPEC PROCESSING Concentration (.)
[2017-07-28 16:00] VITALS: BP 120/75
[2017-07-28 20:00] VITALS: BP 142/66
[2017-07-29] VITALS: BP 129/77
[2017-07-29 08:00] VITALS: BP 138/67
[2017-07-29 12:00] VITALS: BP 135/75
[2017-07-29 16:00] VITALS: BP 127/72
[2017-07-29 20:00] VITALS: BP 141/91
[2017-07-30] VITALS: BP 107/83
[2017-07-30 08:00] VITALS: BP 140/64
[2017-07-30] MEDS ORDERED: DOXYCYCLINE100 M3 PO (08:36)
[2017-07-30] MEDS ORDERED: AUGMENTIN 875875 MG PO (08:36)
[2017-07-30] MEDS ORDERED: PREDNISONE5 MG PO (08:36)
[2017-07-30 12:00] VITALS: BP 128/83
== END 2017-07-30 14:00 | disposition home or self-care (01) | DRG 190 ==
LOC: ED 09:53 → EDHOLD 11:30 → 5E 11:30
PROVIDERS: Internal Medicine; Internal Medicine Critical Care Medicine; Nurse Practitioner Family
PROC: 0BC48ZZ Extirpation of Matter from Right Upper Lobe Bronchus, Via Natural or Artificial Opening Endoscopic (ICD-10-PCS; principal; 2017-07-27)
PROC: 0BC38ZZ Extirpation of Matter from Right Main Bronchus, Via Natural or Artificial Opening Endoscopic (ICD-10-PCS; principal; 2017-07-27)
PROC: 0BC58ZZ Extirpation of Matter from Right Middle Lobe Bronchus, Via Natural or Artificial Opening Endoscopic (ICD-10-PCS; principal; 2017-07-27)
PROC: 0BC98ZZ Extirpation of Matter from Lingula Bronchus, Via Natural or Artificial Opening Endoscopic (ICD-10-PCS; principal; 2017-07-27)
PROC: 0BC88ZZ Extirpation of Matter from Left Upper Lobe Bronchus, Via Natural or Artificial Opening Endoscopic (ICD-10-PCS; principal; 2017-07-27)
PROC: 0BC78ZZ Extirpation of Matter from Left Main Bronchus, Via Natural or Artificial Opening Endoscopic (ICD-10-PCS; principal; 2017-07-27)
PROC: 0BC68ZZ Extirpation of Matter from Right Lower Lobe Bronchus, Via Natural or Artificial Opening Endoscopic (ICD-10-PCS; principal; 2017-07-27)
PROC: 0BCB8ZZ Extirpation of Matter from Left Lower Lobe Bronchus, Via Natural or Artificial Opening Endoscopic (ICD-10-PCS; principal; 2017-07-27)
PROC: 0BC18ZZ Extirpation of Matter from Trachea, Via Natural or Artificial Opening Endoscopic (ICD-10-PCS; principal; 2017-07-27)
DX: J44.0 Chronic obstructive pulmonary disease with (acute) lower respiratory infection (principal); J18.1 Lobar pneumonia, unspecified organism; T17.590A Other foreign object in bronchus causing asphyxiation, initial encounter; J45.51 Severe persistent asthma with (acute) exacerbation; D80.4 Selective deficiency of immunoglobulin M [IgM]; K21.9 Gastro-esophageal reflux disease without esophagitis; E87.6 Hypokalemia; X58.XXXA Exposure to other specified factors, initial encounter; E66.8 Other obesity; J20.9 Acute bronchitis, unspecified; I10 Essential (primary) hypertension; Z79.899 Other long term (current) drug therapy; Z68.34 Body mass index [BMI] 34.0-34.9, adult; Z90.49 Acquired absence of other specified parts of digestive tract; Z90.710 Acquired absence of both cervix and uterus; Z82.49 Family history of ischemic heart disease and other diseases of the circulatory system; Z88.8 Allergy status to other drugs, medicaments and biological substances; Y93.89 Activity, other specified; Y92.89 Other specified places as the place of occurrence of the external cause; Y99.8 Other external cause status

== ENCOUNTER → 2017-08-23 | Outpatient (CLI) | payer MEDICARE ==
[~2017-08-23] MED LIST changes: +AUGMENTIN 875875 MG PO; +AZELASTINE137 MCG/0. NAS; +METHYLPRED-DP4 MG PO; +NORVASC2.5 MG PO
== END | disposition home or self-care (01) ==
LOC: RAD 08-18 13:00
DX: Z13.820 Encounter for screening for osteoporosis (principal); N95.9 Unspecified menopausal and perimenopausal disorder; Z90.710 Acquired absence of both cervix and uterus

== ENCOUNTER 2018-02-27 20:07 | Inpatient (IN) | payer MEDICARE ==
[~2018-02-27] VITALS: Ht 152.4 cm; Wt 73.6 kg
--- NOTE | ~2018-02-27 | DS ---
[place], [place] DISCHARGE SUMMARY NAME: YUE GONZALEZ UNIT #: [id number] ROOM: 520 DOCTOR: BARON ENGLAND MD BIRTHDATE: [birth year] DOS: 03/01/2018 DIAGNOSES: 1. Severe persistent asthma with acute exacerbation. 2. Immunoglobulin deficiency. 3. Benign hypertension. 4. Gastroesophageal reflux disease. MEDICATIONS: Same as on discharge, which include Ceftin 250 twice a day for 5 days, prednisone 5 mg twice a day for 5 days, ProAir HFA q.i.d. p.r.n., breathing treatments DuoNeb q. 4, amlodipine 2.5 daily, Protonix 40 b.i.d., metoclopramide 5 b.i.d. HOSPITAL COURSE: The patient is 67 years old, comes in with complaints of difficulty breathing, cough for 3-4 days duration. Please refer to H and P for details. She was admitted, started on steroids, antibiotics, breathing treatments. The patient improved quite dramatically in the next 24-48 hours. She did not have any evidence of bronchospasm. The patient was discharged home to be followed up as an outpatient. She will receive immunoglobulin infusion as an outpatient. BARON ENGLAND MD CM:CORRINA [id number] BARON ENGLAND MD 03/01/18 1011 interface
--- NOTE | ~2018-02-27 | PR ---
[place], [place] PROGRESS NOTE NAME: YUE GONZALEZ UNIT #: [id number] ROOM: 520 DOCTOR: BARON ENGLAND MD BIRTHDATE: [birth year] DOS: SUBJECTIVE: The patient is doing fine without any complaints today. OBJECTIVE: VITAL SIGNS: Graphic trend shows a pressure 131/70, pulse of 110, respirations 20, and temperature 98.5. LUNGS: Clear. HEART: Regular. ABDOMEN: Soft. EXTREMITIES: Without any edema. ASSESSMENT AND PLAN: 1. Severe intermittent asthma with acute exacerbation, stable and improved. Bronchospasm has resolved and the plan is to discharge her to home today. 2. Hypoxemia, on admission. This also has improved. The patient to follow up as an outpatient, antibiotics and steroids, prescriptions have been given. BARON ENGLAND MD CM:PNTRANS [phone] BARON ENGLAND MD 03/01/182103 interface
--- NOTE | ~2018-02-27 | WRIGHTHP ---
[place], [place] PATIENT HISTORY AND PHYSICAL EXAM NAME: YUE GONZALEZ UNIT #: [id number] ROOM: 520 DOCTOR: BARON ENGLAND MD BIRTHDATE: [birth year] DOS: 02/27/2018 HISTORY OF PRESENT ILLNESS: The patient is 67 years old, well known to us, comes in with complaints of difficulty breathing. For the last 2-3 days, she has had increasing cough and shortness of breath, by yesterday evening she could hardly breathe, so decided to come in. She was hypoxic when she arrived and saturations in the low 90s. The patient states that she is slightly better this morning. Her cough and shortness of breath is improving. Denies having any chest pains or palpitations. PAST MEDICAL HISTORY: Significant for; 1. Severe persistent asthma. 2. Immunoglobulin deficiency. 3. Benign hypertension. MEDICATIONS: That she is on are Protonix 40 b.i.d., Reglan 5 b.i.d., amlodipine 2.5 daily, ProAir HFA, and DuoNebs. SOCIAL HISTORY: Nonsmoker, does not use any alcohol. PHYSICAL EXAMINATION: GENERAL: The patient is awake and alert and oriented. VITAL SIGNS: Graphic trend shows a pressure of 132/70, pulse of 76, respirations 14, afebrile. LUNGS: Diminished breath sounds, scattered wheezes and rales heard. HEART: Regular. ABDOMEN: Obese, soft. EXTREMITIES: Without any edema. ASSESSMENT AND PLAN: 1. Acute tracheobronchitis, on IV antibiotics. 2. Severe intermittent asthma with exacerbation. IV steroids, breathing treatments have been ordered. 3. Immunoglobulin deficiency. The patient is getting IV immunoglobulins monthly and she will have next dose tomorrow as an outpatient. 3. Recent complaints of gastroesophageal reflux disease. A CT scan of the abdomen and pelvis was negative. She was placed on Protonix and Reglan, which she has tolerated and is doing well. 4. Hypoxic respiratory failure. Oxygenation is improved once we started on steroids and antibiotics. We will do an assessment for home O2 eval if needed tomorrow. [place], [place] PATIENT HISTORY AND PHYSICAL EXAM NAME: YUE GONZALEZ UNIT #: [id number] ROOM: 520 DOCTOR: BARON ENGLAND MD BIRTHDATE: [birth year] BARON ENGLAND MD CM:HISPHYS:PATIENT HISTORY AND PHYSICAL EXAMINATION 0839 4 BARON ENGLAND MD 02/28/18 0902 interface
--- NOTE | ~2018-02-27 | EKG ---
[place], [place] ELECTROCARDIOGRAM REPORT NAME: YUE GONZALEZ UNIT #: [id number] ROOM: 520 DOCTOR: YAMILET DRAFT REPORT BIRTHDATE: [birth year] [facility] Test Date: 2018-02-27 Test Time: 20:31:24 Pat Name: YUE GONZALEZ Department: er Room: 520 Gender: [place] [employer] Agent: EKG.WA : 1950 Requested By: JANNY CARLSON Order Number: [id number] Reading MD: Edu Fuentes MD Measurements Intervals [place] Rate: 84 P: 59 IN: 171 QRS: 6 QRSD: 84 T: 29 QT: 351 QTc: 415 Interpretive Statements Sinus rhythm Low voltage, precordial leads Electronically Signed On 03-05-2018 15:40:07 PDT by Edu Fuentes MD CM:EKGRPT:ELECTROCARDIOGRAM REPORT 30 1540 JANNY FAN DRAFT REPORT JANNY CARLSON DO
[2018-02-27 20:15] VITALS: BP 143/83
[2018-02-27 20:41] LABS: BASO # 0.1 10*3/uL (0.0-0.1); BASO % 0.6 % (0.0-1.0); EOS # 1.1 10*3/uL (0.0-0.4); EOS % 9.5 % (1.0-4.0); HEMATOCRIT 41.3 % (37.0-47.0); HEMOGLOBIN 13.2 g/dl (12.0-16.0); LYMPH % 26.8 % (27.0-41.0); MEAN CELL VOLUME 85.5 fl (81.0-99.0); MEAN CORPUSCULAR HGB 27.3 pg (27.0-31.0); MEAN PLATELET VOLUME 9.2 fl (9.6-12.3); MONO # 0.6 10*3/uL (0.1-1.0); MONO % 5.4 % (3.0-9.0); NEUT # 6.4 10*3/uL (2.3-7.9); NEUT % 57.3 % (47.0-73.0); PLATELET COUNT AUTOMATED 336 10*3/uL (130-400); RED BLOOD COUNT 4.83 10*6/uL (4.10-5.10); RED CELL DISTRI WIDTH 13.9 % (0-14.5); WHITE BLOOD COUNT 11.1 10*3/uL (4.8-10.8)
[2018-02-27 20:51] LABS: ACT PARTIAL THROMBO TIME 28.4 SECONDS (20.8-31.5); INTERNATIONAL NORM RATIO 0.9 (2.0-3.5)
[2018-02-27 20:57] LABS: ALBUMIN 3.7 gm/dl (3.1-4.5); ALKALINE PHOSPHATASE 105 U/L (45-117); BUN 16 mg/dl (7-24); CHLORIDE 109 mmol/L (98-107); CREATININE 0.92 mg/dL (0.55-1.02); SGOT/AST 16 IU/L (3-35); SGPT/ALT 25 U/L (12-78); SODIUM 143 mmol/L (136-145); TOTAL PROTEIN 7.2 gm/dL (6.4-8.2)
[2018-02-27 21:00] LABS: TROPONIN I < 0.015 ng/ml (<0.045)
[2018-02-27 22:00] VITALS: BP 138/80
[2018-02-27 22:14] VITALS: BP 108/61
[2018-02-27] MEDS ORDERED: PROTONIX40 MG PO (23:11)
[2018-02-27] MEDS ORDERED: REGLAN5 MG PO (23:12)
[2018-02-28] VITALS: BP 126/89
[2018-02-28 08:45] VITALS: BP 136/74
[2018-02-28 12:00] VITALS: BP 114/66
[2018-02-28 16:00] VITALS: BP 130/53
[2018-02-28 20:00] VITALS: BP 107/60
[2018-03-01] VITALS: BP 131/70
[2018-03-01] MEDS ORDERED: PREDNISONE5 MG PO (08:13)
[2018-03-01] MEDS ORDERED: CEFUROXIME AXE250 MG PO (08:13)
[2018-03-24] MEDS ORDERED: AMLODIPINE BES2.5 MG PO (11:48)
[2018-03-24] MEDS ORDERED: ESOMEPRAZOLE MA40 M1 PO (11:49)
[2018-03-24] MEDS ORDERED: ZAFIRLUKAST20 M2 PO (11:50)
[2018-03-24] MEDS ORDERED: ARNUITY ELLIPT50 MCG INH (11:51)
[2018-03-24] MEDS ORDERED: OYSTER SHELL 51 EACH PO (11:53)
== END 2018-03-01 08:19 | disposition home or self-care (01) | DRG 189 ==
LOC: ED 20:07 → 5E 21:35 → EDHOLD 21:35 → 5E 21:48
PROVIDERS: Student in an Organized Health Care Education/Training Program
DX: J96.01 Acute respiratory failure with hypoxia (principal); J45.51 Severe persistent asthma with (acute) exacerbation; D80.3 Selective deficiency of immunoglobulin G [IgG] subclasses; I10 Essential (primary) hypertension; J20.9 Acute bronchitis, unspecified; K21.9 Gastro-esophageal reflux disease without esophagitis; Z88.8 Allergy status to other drugs, medicaments and biological substances; Z79.899 Other long term (current) drug therapy; Z87.01 Personal history of pneumonia (recurrent); Z90.49 Acquired absence of other specified parts of digestive tract; Z90.710 Acquired absence of both cervix and uterus

== ENCOUNTER → 2018-03-30 | Day surgery (SDC) | payer MEDICARE ==
[~2018-03-30] VITALS: Ht 152.4 cm; Wt 73.9 kg
[~2018-03-30] MED LIST changes: +AMLODIPINE BES2.5 MG PO; +ARNUITY ELLIPT50 MCG INH; +CEFUROXIME AXE250 MG PO; +ESOMEPRAZOLE MA40 M1 PO; +OYSTER SHELL 51 EACH PO; +PROTONIX40 MG PO; +REGLAN5 MG PO
--- NOTE | ~2018-03-30 | O ---
[place], [place] OPERATIVE NOTE NAME: YUE GONZALEZ UNIT #: [id number] ROOM: DOCTOR: CLAUDIA HOLTHARLAN BIRTHDATE: [birth year] DOS: 03/30/2018 GASTROENDOSCOPIC REPORT: PROCEDURE: This is a 67-year-old patient who was presented with reflux symptomatology. She complains that she has been losing some weight because of that complained that she cannot eat, she feels full. ALLERGIES: LISSETTE INHIBITORS. FAMILY HISTORY: Sister with stomach CA. PAST SURGICAL HISTORY: Hysterectomy, cholecystectomy, appendectomy. PAST MEDICAL HISTORY: Asthma and hypertension. MEDICATIONS: The patient has been kept on Protonix 40 mg daily as well as Reglan 5 mg a.m. and p.m. SOCIAL HISTORY: Nonsmoker, nonalcohol consumer. PROCEDURE: Today's procedure part of investigation is panendoscopy plus biopsy. PREMEDICATION: Propofol. SCOPE: Olympus forward-viewing gastroscope Q10 video. REPORT: After putting the patient in left lateral position and application of lubricant to the scope, the scope was introduced. Thereafter, under direct visualization, advanced through the length of esophagus without difficulty. Gastric pouch was entered. Evidence of gastritis leading toward atrophic gastritis was noticed. Antral biopsy obtained. Duodenal bulb, second and third part within normal limits. GI reflexion of the scope reveals cardia to be benign. Scope was gradually withdrawn along the lesser curvature. The patient extubated, tolerated procedure well. IMPRESSION: Gastritis. PLAN AND DISCUSSION: Protonix 40 mg daily is going to continue antireflux measures with elevation of the head of the bed. Plan is going to implemented, Reglan 5 mg a.m. and p.m. has helped. We are going to continue with the above and we are going to ask her to have a Gaviscon Extra Strength 1 at bedtime and should she continue with her symptomatology then I am going to place her on the schedule for [place]. PH monitoring for 48 hours to register status of reflux and clinical reassessment. Thank you very much indeed. Furthermore, since there is 18-pound weight loss ambiguous etiology. I am going to organize a CT scan of the abdomen and pelvis. [place], [place] OPERATIVE NOTE NAME: YUE GONZALEZ UNIT #: [id number] ROOM: DOCTOR: HARLAN TAYLOR MD BIRTHDATE: [birth year] HARLAN TAYLOR MD CM:OPRECORD:OPERATIVE NOTE HARLAN TAYLOR MD 03/30/18 0944 interface
[2018-03-30 08:05] VITALS: BP 142/70
[2018-03-30 09:18] VITALS: BP 132/65
[2018-03-30 09:33] VITALS: BP 129/52
[2018-03-30 09:49] VITALS: BP 116/71
== END | disposition home or self-care (01) ==
LOC: SDC 03-24 08:45
DX: K29.50 Unspecified chronic gastritis without bleeding (principal); K21.9 Gastro-esophageal reflux disease without esophagitis; I10 Essential (primary) hypertension; J45.909 Unspecified asthma, uncomplicated; M19.90 Unspecified osteoarthritis, unspecified site; E66.09 Other obesity due to excess calories; Z90.710 Acquired absence of both cervix and uterus; Z90.49 Acquired absence of other specified parts of digestive tract; Z80.0 Family history of malignant neoplasm of digestive organs; Z88.8 Allergy status to other drugs, medicaments and biological substances; Z79.899 Other long term (current) drug therapy; Z98.890 Other specified postprocedural states; Z68.31 Body mass index [BMI] 31.0-31.9, adult

== ENCOUNTER → 2018-04-05 | Outpatient (CLI) | payer MEDICARE ==
[2018-04-05 13:58] LABS: BASO # 0.1 10*3/uL (0.0-0.1); EOS % 7.9 % (1.0-4.0); HEMATOCRIT 42.7 % (37.0-47.0); HEMOGLOBIN 14.1 g/dl (12.0-16.0); LYMPH # 2.7 10*3/uL (1.3-4.4); LYMPH % 21.5 % (27.0-41.0); MEAN CELL VOLUME 84.9 fl (81.0-99.0); MEAN PLATELET VOLUME 9.3 fl (9.6-12.3); MONO # 0.6 10*3/uL (0.1-1.0); NEUT % 64.1 % (47.0-73.0); PLATELET COUNT AUTOMATED 339 10*3/uL (130-400); RED BLOOD COUNT 5.03 10*6/uL (4.10-5.10); RED CELL DISTRI WIDTH 13.9 % (0-14.5); WHITE BLOOD COUNT 12.5 10*3/uL (4.8-10.8)
== END | disposition home or self-care (01) ==
LOC: LAB 13:28
PROVIDERS: Internal Medicine Critical Care Medicine
DX: J30.9 Allergic rhinitis, unspecified (principal)

== ENCOUNTER → 2018-07-27 | Day surgery (SDC) | payer MEDICARE ==
--- NOTE | ~2018-07-27 | O ---
[place], [place] OPERATIVE NOTE NAME: YUE GONZALEZ UNIT #: [id number] ROOM: DOCTOR: HARLAN TAYLOR MD BIRTHDATE: [birth year] DOS: 07/27/2018 GASTROENDOSCOPIC REPORT INDICATION FOR PROCEDURE: This is a 68-year-old patient, patient who has presented with chief complaint of history of colonic polyp in 2011, undergoing investigation. PAST MEDICAL HISTORY: Associated asthma, hypertension on IVIG. ALLERGIES: No known medication. FAMILY HISTORY: Sister with liver CA and stomach CA. PAST SURGICAL HISTORY: Cholecystectomy, hysterectomy, appendectomy, shoulder, tonsillectomy and ankle repair. SOCIAL HISTORY: Nonsmoker, nonalcohol consumer. PROCEDURE: Today's procedure part of investigation is colonoscopy plus snare polypectomy x 3. PREMEDICATION: Propofol. SCOPE: Olympus forward-viewing colonoscope 10L video. REPORT: After putting the patient in left lateral position and application of lubricant to the scope, the scope was introduced. Thereafter, under direct visualization, advanced through the length of colon without difficulty. Two polypoid lesions, sessile and small in the splenic flexure with snare polypectomy was removed. Another polypoid lesion at the base of cecum with snare polypectomy removed. This polyp was destroyed and processing could not be recovered. However, the base of which has been deeply coagulated anyways. Diverticulosis in scattered form was noticed. The patient was extubated, tolerated the procedure well. IMPRESSION: Diverticulosis and three snare polypectomy with recovery of 2 polyps small from splenic flexure and 1 polyp destroyed in the processing from the cecum. There is no concern about pathology of either one at most to be adenomatous. DIET: High fiber. ACTIVITY: Ad eagle. FOLLOWUP: Routinely with you in office and Dr. Jeronimo. [place], [place] OPERATIVE NOTE NAME: YUE GONZALEZCY UNIT #: [id number] ROOM: DOCTOR: HARLAN TAYLOR MD BIRTHDATE: [birth year] HARLAN TAYLOR MD CM:OPRECORD:OPERATIVE NOTE [id number] HARLAN TAYLOR MD 07/27/18 1159 interface
[2018-07-27 08:20] VITALS: BP 123/47
[2018-07-27 10:13] VITALS: BP 116/58
[2018-07-27 10:28] VITALS: BP 122/68
[2018-07-27 10:43] VITALS: BP 121/76
== END | disposition home or self-care (01) ==
LOC: SDC 07-21 10:15
DX: Z12.11 Encounter for screening for malignant neoplasm of colon (principal); D12.3 Benign neoplasm of transverse colon; K63.5 Polyp of colon; K21.9 Gastro-esophageal reflux disease without esophagitis; K57.30 Diverticulosis of large intestine without perforation or abscess without bleeding; M19.90 Unspecified osteoarthritis, unspecified site; I10 Essential (primary) hypertension; J45.909 Unspecified asthma, uncomplicated; Z90.49 Acquired absence of other specified parts of digestive tract; Z90.710 Acquired absence of both cervix and uterus; Z88.8 Allergy status to other drugs, medicaments and biological substances; Z86.010 Personal history of colon polyps; Z98.890 Other specified postprocedural states; Z80.0 Family history of malignant neoplasm of digestive organs

== ENCOUNTER → 2019-02-07 | Outpatient (CLI) | payer MEDICARE ==
[2019-02-07 11:03] LABS: BASO % 0.3 % (0.0-1.0); HEMATOCRIT 45.2 % (37.0-47.0); HEMOGLOBIN 14.5 g/dl (12.0-16.0); LYMPH # 2.2 10*3/uL (1.3-4.4); LYMPH % 28.8 % (27.0-41.0); MEAN CELL VOLUME 86.4 fl (81.0-99.0); MEAN CORPUSCULAR HGB 27.7 pg (27.0-31.0); MEAN CORPUSCULAR HGB CONC 32.1 g/dl (33.0-37.0); MEAN PLATELET VOLUME 9.4 fl (9.6-12.3); MONO # 0.4 10*3/uL (0.1-1.0); MONO % 5.4 % (3.0-9.0); NEUT # 4.9 10*3/uL (2.3-7.9); NEUT % 65.4 % (47.0-73.0); PLATELET COUNT AUTOMATED 334 10*3/uL (130-400); RED BLOOD COUNT 5.23 10*6/uL (4.10-5.10); RED CELL DISTRI WIDTH 13.3 % (0-14.5); WHITE BLOOD COUNT 7.5 10*3/uL (4.8-10.8)
[2019-02-07 11:30] LABS: ALBUMIN 3.9 gm/dl (3.1-4.5); BUN 20 mg/dl (7-24); CHLORIDE 107 mmol/L (98-107); POTASSIUM 3.9 mmol/L (3.5-5.1); SODIUM 140 mmol/L (136-145)
[2019-02-07 11:39] LABS: ALKALINE PHOSPHATASE 106 U/L (45-117); CHOLESTEROL 203 mg/dL (<200); CREATININE 0.49 mg/dL (0.55-1.02); FREE T4 0.86 ng/dl (0.76-1.46); HDL CHOLESTEROL 73 mg/dl (40-60); LDL CHOLESTEROL 110 mg/dL (9-159); SGOT/AST 15 IU/L (3-35); SGPT/ALT 21 U/L (12-78); THYROID STIM HORMONE (HS) 0.698 uIU/ml (0.358-4.75); TOTAL PROTEIN 7.8 gm/dL (6.4-8.2); TRIGLYCERIDES 100 mg/dl (<150); VLDL CHOLESTEROL 20 mg/dL (6-40)
[2019-02-07 11:50] LABS: VITAMIN D, 25-HYDROXY 34.8 ng/mL (30-100)
== END | disposition home or self-care (01) ==
LOC: LAB 10:15
PROVIDERS: Internal Medicine
DX: Z13.21 Encounter for screening for nutritional disorder (principal); Z13.1 Encounter for screening for diabetes mellitus; M47.816 Spondylosis without myelopathy or radiculopathy, lumbar region; I10 Essential (primary) hypertension; E78.2 Mixed hyperlipidemia; R70.0 Elevated erythrocyte sedimentation rate; R79.82 Elevated C-reactive protein (CRP); E55.9 Vitamin D deficiency, unspecified

== ENCOUNTER → 2019-12-11 | Outpatient (CLI) | payer MEDICARE ==
[2019-12-11 07:53] LABS: BASO % 0.3 % (0.0-1.0); EOS # 0.1 10*3/uL (0.0-0.4); EOS % 1.9 % (1.0-4.0); HEMATOCRIT 44.5 % (37.0-47.0); LYMPH # 2.8 10*3/uL (1.3-4.4); MEAN CELL VOLUME 85.9 fl (81.0-99.0); MEAN CORPUSCULAR HGB 27.2 pg (27.0-31.0); MEAN CORPUSCULAR HGB CONC 31.7 g/dl (33.0-37.0); MEAN PLATELET VOLUME 9.2 fl (9.6-12.3); MONO # 0.4 10*3/uL (0.1-1.0); MONO % 6.9 % (3.0-9.0); NEUT % 46.4 % (47.0-73.0); PLATELET COUNT AUTOMATED 317 10*3/uL (130-400); RED BLOOD COUNT 5.18 10*6/uL (4.10-5.10); RED CELL DISTRI WIDTH 13.4 % (0-14.5); WHITE BLOOD COUNT 6.4 10*3/uL (4.8-10.8)
[2019-12-11 08:17] LABS: CHLORIDE 109 mmol/L (98-107); POTASSIUM 4.2 mmol/L (3.5-5.1); SODIUM 141 mmol/L (136-145)
[2019-12-11 08:26] LABS: ALBUMIN 3.5 gm/dl (3.1-4.5); ALKALINE PHOSPHATASE 97 U/L (45-117); BUN 13 mg/dl (7-24); CHOLESTEROL 199 mg/dL (<200); CREATININE 0.72 mg/dL (0.55-1.02); FREE T4 0.96 ng/dl (0.76-1.46); HDL CHOLESTEROL 73 mg/dl (40-60); LDL CHOLESTEROL 104 mg/dL (9-159); SGOT/AST 19 IU/L (3-35); SGPT/ALT 22 U/L (12-78); TOTAL PROTEIN 7.7 gm/dL (6.4-8.2); TRIGLYCERIDES 110 mg/dl (<150); VLDL CHOLESTEROL 22 mg/dL (6-40)
[2019-12-11 09:44] LABS: VITAMIN D, 25-HYDROXY 63.1 ng/mL (30-100)
== END | disposition home or self-care (01) ==
LOC: LAB 07:16
PROVIDERS: Internal Medicine
DX: Z13.220 Encounter for screening for lipoid disorders (principal); Z13.1 Encounter for screening for diabetes mellitus; E78.2 Mixed hyperlipidemia; D83.8 Other common variable immunodeficiencies; I10 Essential (primary) hypertension; E55.9 Vitamin D deficiency, unspecified

== ENCOUNTER → 2020-07-11 | Outpatient (CLI) | payer MEDICARE | END | disposition home or self-care (01) | LOC: CARD 12:26 | PROVIDERS: ATTEND Internal Medicine | DX: I51.7 Cardiomegaly (principal) ==

== ENCOUNTER → 2020-07-16 | Outpatient (CLI) | payer MEDICARE ==
[2020-07-16 12:32] LABS: BASO % 0.2 % (0.0-1.0); HEMATOCRIT 43.5 % (37.0-47.0); LYMPH # 2.6 10*3/uL (1.3-4.4); LYMPH % 27.8 % (27.0-41.0); MEAN CELL VOLUME 87.2 fl (81.0-99.0); MEAN CORPUSCULAR HGB 27.1 pg (27.0-31.0); MEAN PLATELET VOLUME 9.1 fl (9.6-12.3); MONO # 0.5 10*3/uL (0.1-1.0); MONO % 5.2 % (3.0-9.0); NEUT # 6.2 10*3/uL (2.3-7.9); NEUT % 66.3 % (47.0-73.0); PLATELET COUNT AUTOMATED 323 10*3/uL (130-400); RED BLOOD COUNT 4.99 10*6/uL (4.10-5.10); WHITE BLOOD COUNT 9.3 10*3/uL (4.8-10.8)
[2020-07-16 13:05] LABS: ALBUMIN 3.6 gm/dl (3.1-4.5); ALKALINE PHOSPHATASE 107 U/L (45-117); BUN 14 mg/dl (7-24); CHLORIDE 110 mmol/L (98-107); CREATININE 0.63 mg/dL (0.55-1.02); POTASSIUM 3.7 mmol/L (3.5-5.1); SGOT/AST 17 IU/L (3-35); SGPT/ALT 25 U/L (12-78); SODIUM 143 mmol/L (136-145); TOTAL PROTEIN 7.1 gm/dL (6.4-8.2)
[2020-07-17 05:10] LABS: IMMUNOGLOBULIN M, QNT 56 mg/dL (26-217)
[2020-07-17 16:09] LABS: IGG SUBCLASS 1 480 mg/dL (248-810); IGG SUBCLASS 2 326 mg/dL (130-555); IGG SUBCLASS 3 79 mg/dL (15-102); IGG SUBCLASS 4 46 mg/dL (2-96); IMMUNOGLOBULIN G, QNT 955 mg/dL (586-1602)
== END | disposition home or self-care (01) ==
LOC: LAB 11:52
PROVIDERS: ATTEND Specialist
DX: D83.8 Other common variable immunodeficiencies (principal)

== ENCOUNTER → 2020-07-23 | Outpatient (CLI) | payer MEDICARE | END | disposition home or self-care (01) | LOC: RAD 00:37 → MAMMO 14:00 | PROVIDERS: ATTEND Internal Medicine | DX: Z12.31 Encounter for screening mammogram for malignant neoplasm of breast (principal); M81.0 Age-related osteoporosis without current pathological fracture; M85.89 Other specified disorders of bone density and structure, multiple sites; Z78.0 Asymptomatic menopausal state ==

== ENCOUNTER → 2020-11-27 | Outpatient (CLI) | payer MEDICARE ==
[2020-11-27 12:48] LABS: CHOLESTEROL 198 mg/dL (<200); TRIGLYCERIDES 102 mg/dl (<150)
[2020-11-27 12:49] LABS: LDL CHOLESTEROL 105 mg/dL (9-159)
== END | disposition home or self-care (01) ==
LOC: LAB 11:31
PROVIDERS: ATTEND Internal Medicine
DX: R06.02 Shortness of breath (principal); E03.9 Hypothyroidism, unspecified; D52.9 Folate deficiency anemia, unspecified; D51.9 Vitamin B12 deficiency anemia, unspecified; R70.0 Elevated erythrocyte sedimentation rate; R79.82 Elevated C-reactive protein (CRP); R74.8 Abnormal levels of other serum enzymes; R53.81 Other malaise; E55.9 Vitamin D deficiency, unspecified; R79.89 Other specified abnormal findings of blood chemistry; Z13.0 Encounter for screening for diseases of the blood and blood-forming organs and certain disorders involving the immune mechanism; Z13.1 Encounter for screening for diabetes mellitus; Z13.21 Encounter for screening for nutritional disorder; Z13.220 Encounter for screening for lipoid disorders; Z00.01 Encounter for general adult medical examination with abnormal findings

== ENCOUNTER → 2021-04-14 | Outpatient (CLI) | payer MEDICARE | END | disposition home or self-care (01) | LOC: US 13:32 | PROVIDERS: ATTEND Internal Medicine | DX: I65.23 Occlusion and stenosis of bilateral carotid arteries (principal); R42 Dizziness and giddiness ==

== ENCOUNTER → 2021-04-24 | Outpatient (CLI) | payer MEDICARE ==
[2021-04-24 08:26] LABS: CREATININE 0.68 mg/dL (0.55-1.02)
== END | disposition home or self-care (01) ==
LOC: LAB 07:43
PROVIDERS: ATTEND Internal Medicine
DX: Z01.812 Encounter for preprocedural laboratory examination (principal); I65.22 Occlusion and stenosis of left carotid artery; I10 Essential (primary) hypertension

== ENCOUNTER → 2021-05-01 | Outpatient (CLI) | payer MEDICARE | END | disposition home or self-care (01) | LOC: CT 00:05 | PROVIDERS: ATTEND Internal Medicine | DX: I65.22 Occlusion and stenosis of left carotid artery (principal); I10 Essential (primary) hypertension ==

== ENCOUNTER → 2021-11-06 | Outpatient (CLI) | payer MEDICARE ==
[2021-11-06 07:43] LABS: BASO % 0.3 % (0.0-1.0); HEMATOCRIT 42.4 % (37.0-47.0); LYMPH # 2.1 10*3/uL (1.3-4.4); LYMPH % 31.1 % (27.0-41.0); MEAN CELL VOLUME 88.1 fl (81.0-99.0); MEAN CORPUSCULAR HGB 28.5 pg (27.0-31.0); MEAN CORPUSCULAR HGB CONC 32.3 g/dl (33.0-37.0); MEAN PLATELET VOLUME 9.5 fl (9.6-12.3); MONO # 0.5 10*3/uL (0.1-1.0); NEUT # 4.2 10*3/uL (2.3-7.9); NEUT % 61.2 % (47.0-73.0); PLATELET COUNT AUTOMATED 280 10*3/uL (130-400); RED BLOOD COUNT 4.81 10*6/uL (4.10-5.10); RED CELL DISTRI WIDTH 12.9 % (0-14.5); WHITE BLOOD COUNT 6.9 10*3/uL (4.8-10.8)
[2021-11-06 08:15] LABS: BUN 14 mg/dl (7-24); CHLORIDE 111 mmol/L (98-107); CHOLESTEROL 180 mg/dL (<200); CREATININE 0.57 mg/dL (0.55-1.02); LDL CHOLESTEROL 93 mg/dL (9-159); POTASSIUM 4.1 mmol/L (3.5-5.1); SGOT/AST 15 IU/L (3-35); SGPT/ALT 23 U/L (12-78); SODIUM 144 mmol/L (136-145); TRIGLYCERIDES 66 mg/dl (<150)
[2021-11-06 08:21] LABS: ALKALINE PHOSPHATASE 85 U/L (45-117); FREE T4 0.96 ng/dl (0.76-1.46); T3 UPTAKE 32 % (31-39); TOTAL PROTEIN 6.9 gm/dL (6.4-8.2)
[2021-11-06 08:53] LABS: VITAMIN D, 25-HYDROXY 90.1 ng/mL (30-100)
== END | disposition home or self-care (01) ==
LOC: LAB 07:04
PROVIDERS: ATTEND Internal Medicine
DX: Z13.89 Encounter for screening for other disorder (principal); Z13.29 Encounter for screening for other suspected endocrine disorder; E55.9 Vitamin D deficiency, unspecified; Z13.0 Encounter for screening for diseases of the blood and blood-forming organs and certain disorders involving the immune mechanism; Z13.1 Encounter for screening for diabetes mellitus; Z13.21 Encounter for screening for nutritional disorder; Z13.220 Encounter for screening for lipoid disorders; Z13.228 Encounter for screening for other metabolic disorders; Z13.6 Encounter for screening for cardiovascular disorders; Z13.9 Encounter for screening, unspecified

== ENCOUNTER → 2022-10-09 | Outpatient (CLI) | payer MEDICARE ==
[2022-10-09 07:41] LABS: BASO % 0.3 % (0.0-1.0); EOS # 0.1 10*3/uL (0.0-0.4); EOS % 1.9 % (1.0-4.0); HEMATOCRIT 43.6 % (37.0-47.0); LYMPH # 2.5 10*3/uL (1.3-4.4); LYMPH % 36.8 % (27.0-41.0); MEAN CELL VOLUME 88.1 fl (81.0-99.0); MEAN CORPUSCULAR HGB 27.9 pg (27.0-31.0); MEAN CORPUSCULAR HGB CONC 31.7 g/dl (33.0-37.0); MEAN PLATELET VOLUME 8.9 fl (9.6-12.3); MONO # 0.5 10*3/uL (0.1-1.0); MONO % 6.7 % (3.0-9.0); NEUT # 3.6 10*3/uL (2.3-7.9); NEUT % 53.6 % (47.0-73.0); PLATELET COUNT AUTOMATED 265 10*3/uL (130-400); RED BLOOD COUNT 4.95 10*6/uL (4.10-5.10); RED CELL DISTRI WIDTH 13.1 % (0-14.5); WHITE BLOOD COUNT 6.7 10*3/uL (4.8-10.8)
[2022-10-09 08:20] LABS: VITAMIN D, 25-HYDROXY 101.4 ng/mL (30-100)
[2022-10-09 08:21] LABS: ALKALINE PHOSPHATASE 83 U/L (46-116); BUN 12 mg/dl (9-23); CHLORIDE 105 mmol/L (98-107); CHOLESTEROL 183 mg/dL (<200); FREE T4 1.17 ng/dl (0.89-1.76); LDL CHOLESTEROL 96 mg/dL (9-159); POTASSIUM 4.3 mmol/L (3.4-5.1); SGPT/ALT 22 U/L (10-49); THYROID STIM HORMONE (HS) 1.254 uIU/ml (0.550-4.780); TOTAL PROTEIN 7.2 gm/dL (6.0-8.0); TRIGLYCERIDES 83 mg/dl (<150)
== END | disposition home or self-care (01) ==
LOC: LAB 07:20
PROVIDERS: ATTEND Internal Medicine
DX: I10 Essential (primary) hypertension (principal); D80.1 Nonfamilial hypogammaglobulinemia; I38 Endocarditis, valve unspecified; D80.9 Immunodeficiency with predominantly antibody defects, unspecified; D51.0 Vitamin B12 deficiency anemia due to intrinsic factor deficiency; E55.9 Vitamin D deficiency, unspecified

== ENCOUNTER → 2022-12-08 | Outpatient (CLI) | payer MEDICARE | END | disposition home or self-care (01) | LOC: MAMMO 15:28 | PROVIDERS: ATTEND Internal Medicine | DX: Z12.31 Encounter for screening mammogram for malignant neoplasm of breast (principal) ==

== ENCOUNTER → 2023-06-03 | Outpatient (CLI) | payer MEDICARE | END | disposition home or self-care (01) | LOC: RAD 07:35 | PROVIDERS: ATTEND Internal Medicine | DX: M19.022 Primary osteoarthritis, left elbow (principal) ==

== ENCOUNTER → 2023-11-05 | Outpatient (CLI) | payer MEDICARE ==
[2023-11-05 07:29] LABS: BASO % 0.3 % (0.0-1.0); HEMATOCRIT 43.7 % (37.0-47.0); LYMPH # 2.7 10*3/uL (1.3-4.4); LYMPH % 38.5 % (27.0-41.0); MEAN CELL VOLUME 87.8 fl (81.0-99.0); MEAN CORPUSCULAR HGB 28.5 pg (27.0-31.0); MEAN CORPUSCULAR HGB CONC 32.5 g/dl (33.0-37.0); MEAN PLATELET VOLUME 9.1 fl (9.6-12.3); MONO # 0.5 10*3/uL (0.1-1.0); MONO % 7.6 % (3.0-9.0); NEUT # 3.7 10*3/uL (2.3-7.9); NEUT % 53.2 % (47.0-73.0); PLATELET COUNT AUTOMATED 273 10*3/uL (130-400); RED BLOOD COUNT 4.98 10*6/uL (4.10-5.10); RED CELL DISTRI WIDTH 12.8 % (0-14.5)
[2023-11-05 08:04] LABS: ALKALINE PHOSPHATASE 75 U/L (46-116); BUN 12 mg/dl (9-23); CHLORIDE 105 mmol/L (98-107); CHOLESTEROL 194 mg/dL (<200); FREE T4 1.11 ng/dl (0.89-1.76); LDL CHOLESTEROL 103 mg/dL (9-159); POTASSIUM 4.4 mmol/L (3.4-5.1); SGPT/ALT 25 U/L (5-49); TOTAL PROTEIN 6.9 gm/dL (6.0-8.0); TRIGLYCERIDES 109 mg/dl (<150)
[2023-11-05 08:13] LABS: VITAMIN D, 25-HYDROXY 69.6 ng/mL (30-100)
== END | disposition home or self-care (01) ==
LOC: LAB 07:08
PROVIDERS: ATTEND Internal Medicine
DX: Z13.0 Encounter for screening for diseases of the blood and blood-forming organs and certain disorders involving the immune mechanism (principal); Z13.1 Encounter for screening for diabetes mellitus; Z13.21 Encounter for screening for nutritional disorder; Z13.220 Encounter for screening for lipoid disorders; Z13.228 Encounter for screening for other metabolic disorders; Z13.29 Encounter for screening for other suspected endocrine disorder; Z13.6 Encounter for screening for cardiovascular disorders; Z13.89 Encounter for screening for other disorder; Z13.9 Encounter for screening, unspecified; J30.2 Other seasonal allergic rhinitis; M54.16 Radiculopathy, lumbar region; I10 Essential (primary) hypertension

== ENCOUNTER → 2023-12-02 | Outpatient (CLI) | payer MEDICARE | END | disposition home or self-care (01) | LOC: CARD 13:21 | PROVIDERS: ATTEND Internal Medicine | DX: I65.23 Occlusion and stenosis of bilateral carotid arteries (principal); I05.9 Rheumatic mitral valve disease, unspecified ==

== ENCOUNTER → 2023-12-13 | Outpatient (CLI) | payer MEDICARE ==
[~2023-12-13] MED LIST changes: +IOHEXOL 350 MG/ML 100 ML VIAL IV ONE; +SODIUM CHLORIDE 0.9% 100 ML BAG IV ONE
== END | disposition home or self-care (01) ==
LOC: CT 07:40
PROVIDERS: ATTEND Internal Medicine
DX: I65.23 Occlusion and stenosis of bilateral carotid arteries (principal)

== ENCOUNTER 2025-03-28 18:57 | Emergency (ER) | payer MEDICARE ==
[~2025-03-28] VITALS: Ht 152.4 cm; Wt 82.6 kg
[~2025-03-28 18:57] MED LIST changes: -IOHEXOL 350 MG/ML 100 ML VIAL IV ONE; -SODIUM CHLORIDE 0.9% 100 ML BAG IV ONE
[2025-03-28 19:02] VITALS: BP 134/49
== END 2025-03-28 22:36 | disposition short-term general hospital (02) ==
LOC: ED 18:57
DX: S72.342A Displaced spiral fracture of shaft of left femur, initial encounter for closed fracture (principal); J45.909 Unspecified asthma, uncomplicated; Z88.8 Allergy status to other drugs, medicaments and biological substances; Z79.899 Other long term (current) drug therapy; Z90.49 Acquired absence of other specified parts of digestive tract; Z90.710 Acquired absence of both cervix and uterus; X50.1XXA Overexertion from prolonged static or awkward postures, initial encounter; Y93.89 Activity, other specified; Y92.89 Other specified places as the place of occurrence of the external cause; Y99.8 Other external cause status